=== PATIENT | female | born 1965 | race Caucasian/White ===

== ENCOUNTER → 2019-02-27 | Outpatient (CLI) | payer OTHER ==
[~2019-02-27] MED LIST: AMOX875; DULO60; Desyrel50 MG; FISH OIL 1,0001 EAC1; GABA300; Omeprazole20 M1; TIZANIDINE HCL4 MG; VOL-CARE RX TA1 EACH
== END | disposition home or self-care (01) ==
LOC: PLD 13:41 → LAB SHORT 13:41
DX: G57.62 Lesion of plantar nerve, left lower limb (principal); M79.672 Pain in left foot
CPT/HCPCS: 88304

== ENCOUNTER → 2024-01-31 | Outpatient (CLI) | payer OTHER ==
[~2024-01-31] MED LIST changes: +ABILIFY MYCITE2 M2 PO; +ALPRAZOLAM0.5 M1 PO; +AMPDEX10; +ARIPIPRAZOLE2 M1 PO; +BUSPIRONE HCL7.5 M6 PO; +CELEBREX200 MG PO; +DIGOX125 MC1 PO; +DULOXETINE HCL60 M1 PO; +ESTRADIOL-NORE1 EAC2 PO; +JARDIANCE10 MG PO; +LOSA25 PO; +NEBIVOLOL HCL5 MG PO; +NEURONTIN300 MG PO; +OMEP20ER PO; +PAXIL2010 PO; +SOAANZ20 M1 PO; +SPIR25 PO; +TOPROL XL25 MG PO; +TRIAMTERENE-HCTZ 37.
[2024-01-31 14:40] LABS: Adenovirus F 40/41 Not Detected (NOT DETECT); Astrovirus Not Detected (NOT DETECT); Campylobacter Sp Not Detected (NOT DETECT); Cryptosporidium Not Detected (NOT DETECT); Cyclospora Cayetanensis Not Detected (NOT DETECT); E. Coli O157 Not Detected (NOT DETECT); Entamoeba Histolytica Not Detected (NOT DETECT); Enteroaggregative E. coli-EAEC Not Detected (NOT DETECT); Enteropathogenic E. coli-EPEC Not Detected (NOT DETECT); Enterotoxigenic E. coli-ETEC Not Detected (NOT DETECT); Giardia Lamblia Not Detected (NOT DETECT); Plesiomonas Shigelloides Not Detected (NOT DETECT); Salmonella Sp Not Detected (NOT DETECT); Shiga Toxin-prod E. coli-STEC Not Detected (NOT DETECT); Shigella/Enteroin E. coli-EIEC Not Detected (NOT DETECT); Vibrio Cholerae Not Detected (NOT DETECT); Vibrio Sp Not Detected (NOT DETECT); Yersinia Enterocolitica Not Detected (NOT DETECT)
[2024-01-31 14:41] LABS: Norovirus GI/GII Not Detected (NOT DETECT); Rotavirus A Not Detected (NOT DETECT); Sapovirus Not Detected (NOT DETECT)
== END ==
LOC: LAB SHORT 08:37 → LAB 08:37 → LAB FUT 01-27 10:55
PROVIDERS: Internal Medicine
DX: R19.7 Diarrhea, unspecified (principal)
CPT/HCPCS: 87507

== ENCOUNTER 2024-03-07 16:22 | Observation (INO) | payer OTHER ==
[~2024-03-07] VITALS: Ht 162.6 cm; Wt 93.0 kg
[2024-03-08 12:04] VITALS: BP 113/74
== END 2024-03-08 13:38 | disposition home or self-care (01) ==
LOC: ER 16:22 → PCU 16:23
PROVIDERS: ADMIT Internal Medicine
DX: I47.19 Other supraventricular tachycardia (principal); I50.20 Unspecified systolic (congestive) heart failure; K21.9 Gastro-esophageal reflux disease without esophagitis; R00.1 Bradycardia, unspecified; I42.8 Other cardiomyopathies; I08.1 Rheumatic disorders of both mitral and tricuspid valves; Z79.899 Other long term (current) drug therapy

== ENCOUNTER 2024-03-12 09:05 | Emergency (ER) | payer OTHER ==
[~2024-03-12] VITALS: Ht 162.6 cm; Wt 93.0 kg
[~2024-03-12 09:05] MED LIST changes: +NEBI5 PO
[2024-03-12 09:47] LABS: BASOPHILS ABSOLUTE AUTO 0.07 K/mm3 (0.00-0.23); BASOPHILS PERCENT AUTO 1 % (0-2); EOSINOPHILS ABSOLUTE AUTO 0.17 K/mm3 (0.00-0.68); EOSINOPHILS PERCENT AUTO 3 % (0-6); Hematocrit 41.3 % (33.0-51.0); Hemoglobin 13.8 g/dL (11.5-16.0); IMMATURE GRAN ABSOLUTE AUTO 0.02 K/mm3 (0.00-0.10); IMMATURE GRAN PERCENT AUTO 0 % (0-1); LYMPHOCYTES ABSOLUTE AUTO 1.89 K/mm3 (0.84-5.20); LYMPHOCYTES PERCENT AUTO 31 % (21-46); MONOCYTES ABSOLUTE AUTO 0.53 K/mm3 (0.16-1.47); MONOCYTES PERCENT AUTO 9 % (4-13); Mean Corpuscular HGB 32.2 pg (26.0-34.0); Mean Corpuscular HGB Conc 33.4 g/dL (31.5-36.5); Mean Corpuscular Volume 97 fL (80-100); Mean Platelet Volume 9.2 fL (9.1-12.4); NEUTROPHILS PERCENT AUTO 56 % (41-73); Platelet Count 384 K/mm3 (150-400); RDW Coefficient Variation 13.3 % (11.7-14.2); RDW Standard Deviation 47.4 fL (35.1-46.3); Red Blood Cell Count 4.28 M/mm3 (3.80-5.20); White Blood Cell Count 6.08 K/mm3 (4.00-11.30)
[2024-03-12 10:07] LABS: Albumin, Blood 3.4 g/dL (3.4-5.0); Albumin/Globulin Ratio 0.9 (0.8-1.8); Bilirubin, Total 0.3 mg/dL (0.1-1.0); Calcium, Blood 8.9 mg/dL (8.5-10.1); Globulin, Blood 3.7 g/dL (2.2-4.0); Potassium, Blood 4.1 mmol/L (3.5-5.5); Total Protein, Blood 7.1 g/dL (6.4-8.2)
[2024-03-12 13:00] VITALS: BP 114/82
[2024-03-12] MEDS ORDERED: Lopressor 25 mg25 MG PO (13:14)
[2024-03-12] MEDS ORDERED: RX Prepack 2 Sprays Naloxone HCL 4 MG/SPRAY ONE (13:47)
== END 2024-03-12 13:34 | disposition home or self-care (01) ==
LOC: ER 09:05
PROVIDERS: Student in an Organized Health Care Education/Training Program
DX: R00.0 Tachycardia, unspecified (principal); R07.89 Other chest pain; R06.02 Shortness of breath; I42.8 Other cardiomyopathies; M79.7 Fibromyalgia; N18.30 Chronic kidney disease, stage 3 unspecified; F32.A Depression, unspecified; G62.9 Polyneuropathy, unspecified; K21.9 Gastro-esophageal reflux disease without esophagitis; Z79.899 Other long term (current) drug therapy; Z79.84 Long term (current) use of oral hypoglycemic drugs; Z86.79 Personal history of other diseases of the circulatory system
CPT/HCPCS: 71046; 80053; 84484; 85025; A9270

== ENCOUNTER → 2024-08-06 | Outpatient (CLI) | payer OTHER ==
[~2024-08-06] MED LIST changes: +Carvedilol12.5 MG PO; +DAPAGLIFLOZIN10 MG PO; +ELIQUIS5 M2 PO; +Lopressor 25 mg25 MG PO; +METO25 PO; +NEBI10 PO; -NEBI5 PO
[2024-08-10 20:50] LABS: ALBUMIN %,URINE 42.4 %; ALPHA-2 %,URINE 14.9 %; BETA GLOBULIN %,URINE 15.5 %; GAMMA GLOBULIN %,URINE 13.2 %; HOURS COLLECTED 24 hr; TOTAL VOLUME 2000 mL
== END ==
LOC: LAB SHORT 07:45 → LAB 07:45
PROVIDERS: Internal Medicine
DX: N18.31 Chronic kidney disease, stage 3a (principal); R79.89 Other specified abnormal findings of blood chemistry
CPT/HCPCS: 81050; 84156; 84166; 86335

== ENCOUNTER → 2024-10-18 | Outpatient (CLI) | payer OTHER | LOC: LAB 17:13 → LAB SHORT 17:13 | DX: N39.0 Urinary tract infection, site not specified (principal) | CPT/HCPCS: 87086 ==

== ENCOUNTER 2025-06-09 14:53 | Emergency (ER) | payer BC, OTHER ==
[~2025-06-09] VITALS: Ht 165.1 cm; Wt 95.2 kg
[2025-06-09 15:31] LABS: BASOPHILS ABSOLUTE AUTO 0.08 K/mm3 (0.00-0.23); BASOPHILS PERCENT AUTO 1 % (0-2); EOSINOPHILS ABSOLUTE AUTO 0.43 K/mm3 (0.00-0.68); EOSINOPHILS PERCENT AUTO 4 % (0-6); Hematocrit 38.2 % (33.0-51.0); Hemoglobin 11.8 g/dL (11.5-16.0); IMMATURE GRAN ABSOLUTE AUTO 0.04 K/mm3 (0.00-0.10); IMMATURE GRAN PERCENT AUTO 0 % (0-1); LYMPHOCYTES ABSOLUTE AUTO 0.99 K/mm3 (0.84-5.20); LYMPHOCYTES PERCENT AUTO 9 % (21-46); MONOCYTES ABSOLUTE AUTO 0.62 K/mm3 (0.16-1.47); MONOCYTES PERCENT AUTO 6 % (4-13); Mean Corpuscular HGB Conc 30.9 g/dL (31.5-36.5); Mean Corpuscular Volume 99 fL (80-100); NEUTROPHILS ABSOLUTE AUTO 8.68 K/mm3 (1.96-9.15); NEUTROPHILS PERCENT AUTO 80 % (41-73); NRBC ABSOLUTE 0.00 K/mm3 (0.00-0.02); NRBC Auto 0.0 /100 WBC (0.0-0.2); Platelet Count 447 K/mm3 (150-400); RDW Coefficient Variation 15.4 % (11.7-14.2); RDW Standard Deviation 56.4 fL (35.1-46.3)
[2025-06-09 15:52] LABS: Alanine Aminotransfer (ALT/SGP 22.0 U/L (12-78); Albumin, Blood 3.2 g/dL (3.4-5.0); Albumin/Globulin Ratio 0.7 (0.8-1.8); Anion Gap 9.0 mmol/L (3-11); Aspartate Aminotrans (AST/SGOT 18.0 U/L (12-37); Bilirubin, Total 0.4 mg/dL (0.1-1.0); Blood Urea Nitrogen 17.0 mg/dL (8-24); CO2, Blood 26.0 mmol/L (21-32); Calcium, Blood 8.8 mg/dL (8.5-10.1); Chloride, Blood 105.0 mmol/L (98-108); Creatinine, Blood 1.54 mg/dL (0.40-1.00); Globulin, Blood 4.4 g/dL (2.2-4.0); Glucose, Blood 111.0 mg/dL (70-99); Potassium, Blood 4.3 mmol/L (3.5-5.5); Sodium, Blood 136.0 mmol/L (136-145); Total Protein, Blood 7.6 g/dL (6.4-8.2)
[2025-06-09] MEDS ORDERED: Morphine Sulfate 4 MG/1 ML Injection IV ONE (16:10)
[2025-06-09 16:22] LABS: Source, Urine Clean Catch
[2025-06-09 16:24] LABS: Bilirubin, Urine Neg (Neg); Color, Urine Yellow (P-Yellow); Glucose Qualitative, Urine Neg (Neg); Ketones, Urine Neg (Neg); Leukocyte Esterase, Urine Neg (Neg); Protein, Urine 2+ (Neg); Specific Gravity, Urine 1.020 (1.003-1.022); Urobilinogen, Urine NORM (Normal)
[2025-06-09 16:56] LABS: Red Blood Cells, Urine 0-2 /hpf (0-2)
[2025-06-09] MEDS ORDERED: Ketorolac Tromethamine 15mg Vial IV ONE (18:30)
[2025-06-09] MEDS ORDERED: Ondansetron HCl 2 MG / ML 2ML Vial IV ONE (18:35)
[2025-06-09 21:10] VITALS: BP 147/76
[2025-06-09] MEDS ORDERED: ONDA4ODT MM (21:23)
[2025-06-09] MEDS ORDERED: HYDR1TAB94 PO (21:23)
== END 2025-06-09 21:19 | disposition home or self-care (01) ==
LOC: ER 14:53
PROVIDERS: Emergency Medicine; Student in an Organized Health Care Education/Training Program
DX: D49.512 Neoplasm of unspecified behavior of left kidney (principal); K76.9 Liver disease, unspecified; K21.9 Gastro-esophageal reflux disease without esophagitis; Z79.899 Other long term (current) drug therapy
CPT/HCPCS: 74177; 76705; 80053; 81001; 83690; 85025; 96374-59; 96375; 99284-25; J1885; J2270; J2405; Q9967

== ENCOUNTER → 2025-06-27 | Outpatient (CLI) | payer BC, OTHER ==
[~2025-06-27] MED LIST changes: +GABA300 PO; +HYDR1TAB94 PO; +ONDA4ODT MM
[2025-06-27 10:55] LABS: Hematocrit 39.7 % (33.0-51.0); Hemoglobin 12.6 g/dL (11.5-16.0); Mean Corpuscular HGB Conc 31.7 g/dL (31.5-36.5); Mean Corpuscular Volume 96 fL (80-100); NRBC ABSOLUTE 0.00 K/mm3 (0.00-0.02); NRBC Auto 0.0 /100 WBC (0.0-0.2); Platelet Count 638 K/mm3 (150-400); RDW Coefficient Variation 14.7 % (11.7-14.2); RDW Standard Deviation 51.8 fL (35.1-46.3)
[2025-06-27 11:06] LABS: Prothrombin Time Results 11.9 Sec (9.7-11.5)
== END | disposition home or self-care (01) ==
LOC: LAB 09:38 → LAB SHORT 09:38
PROVIDERS: Internal Medicine
DX: C80.0 Disseminated malignant neoplasm, unspecified (principal)
CPT/HCPCS: 36415; 85027; 85610; 85730

== ENCOUNTER 2025-07-10 09:14 | Emergency (ER) | payer OTHER ==
[~2025-07-10] VITALS: Ht 162.6 cm; Wt 88.5 kg
[2025-07-10 10:53] LABS: BASOPHILS ABSOLUTE AUTO 0.13 K/mm3 (0.00-0.23); BASOPHILS PERCENT AUTO 1 % (0-2); EOSINOPHILS ABSOLUTE AUTO 1.25 K/mm3 (0.00-0.68); EOSINOPHILS PERCENT AUTO 6 % (0-6); Hematocrit 34.2 % (33.0-51.0); Hemoglobin 10.9 g/dL (11.5-16.0); IMMATURE GRAN ABSOLUTE AUTO 0.19 K/mm3 (0.00-0.10); IMMATURE GRAN PERCENT AUTO 1 % (0-1); LYMPHOCYTES ABSOLUTE AUTO 1.18 K/mm3 (0.84-5.20); LYMPHOCYTES PERCENT AUTO 5 % (21-46); MONOCYTES ABSOLUTE AUTO 2.06 K/mm3 (0.16-1.47); MONOCYTES PERCENT AUTO 9 % (4-13); Mean Corpuscular HGB Conc 31.9 g/dL (31.5-36.5); Mean Corpuscular Volume 93 fL (80-100); NEUTROPHILS ABSOLUTE AUTO 16.99 K/mm3 (1.96-9.15); NEUTROPHILS PERCENT AUTO 78 % (41-73); NRBC ABSOLUTE 0.00 K/mm3 (0.00-0.02); NRBC Auto 0.0 /100 WBC (0.0-0.2); Platelet Count 566 K/mm3 (150-400); RDW Coefficient Variation 14.6 % (11.7-14.2); RDW Standard Deviation 51.1 fL (35.1-46.3)
[2025-07-10 11:17] LABS: Anion Gap 14.0 mmol/L (3-11); Blood Urea Nitrogen 25.0 mg/dL (8-24); CO2, Blood 21.0 mmol/L (21-32); Calcium, Blood 8.7 mg/dL (8.5-10.1); Chloride, Blood 97.0 mmol/L (98-108); Creatinine, Blood 1.4 mg/dL (0.40-1.00); Glucose, Blood 136.0 mg/dL (70-99); Potassium, Blood 4.6 mmol/L (3.5-5.5); Sodium, Blood 127.0 mmol/L (136-145)
[2025-07-10 11:32] LABS: Source, Urine Clean Catch
[2025-07-10 12:00] LABS: Bilirubin, Urine Neg (Neg); Color, Urine Yellow (P-Yellow); Glucose Qualitative, Urine Neg (Neg); Ketones, Urine Neg (Neg); Leukocyte Esterase, Urine Neg (Neg); Protein, Urine 3+ (Neg); Specific Gravity, Urine 1.015 (1.003-1.022); Urobilinogen, Urine NORM (Normal)
[2025-07-10 12:10] LABS: Influenza A, PCR NEGATIVE (NEGATIVE); Influenza B, PCR NEGATIVE (NEGATIVE); Red Blood Cells, Urine 0-2 /hpf (0-2); Resp Syncytial Virus, PCR NEGATIVE (NEGATIVE); SARS-Cov-2 (COVID-19) PCR, MMC NEGATIVE (NEGATIVE); White Blood Cells, Urine 0-2 /hpf (0-5)
[2025-07-10] MEDS ORDERED: NS 1,000 ML IV SCH (13:00)
[2025-07-10 15:15] VITALS: BP 122/81
[2025-07-12] MEDS ORDERED: AMIODARONE HCL100 M3 PO (08:31)
[2025-07-12] MEDS ORDERED: RAYOS PO (08:33)
[2025-07-12] MEDS ORDERED: GABA300 PO (08:36)
== END 2025-07-10 16:14 | disposition home or self-care (01) ==
LOC: ER 09:14
PROVIDERS: Student in an Organized Health Care Education/Training Program
DX: R00.2 Palpitations (principal); I95.9 Hypotension, unspecified; I48.91 Unspecified atrial fibrillation; Z88.8 Allergy status to other drugs, medicaments and biological substances; Z79.01 Long term (current) use of anticoagulants; Z79.899 Other long term (current) drug therapy; I42.8 Other cardiomyopathies; N18.30 Chronic kidney disease, stage 3 unspecified; D72.829 Elevated white blood cell count, unspecified; D75.839 Thrombocytosis, unspecified; E87.1 Hypo-osmolality and hyponatremia
CPT/HCPCS: 80048; 81001; 84484; 85025; 87086; 87637; 93005; 93010; 96360; 99285-25; J7030

== ENCOUNTER 2025-07-16 07:16 | Inpatient (IN) | payer OTHER ==
[~2025-07-16] VITALS: Ht 162.6 cm; Wt 91.7 kg
[2025-07-16] VITALS (13 sets, daily range): BP systolic 104–191; BP diastolic 66–113
[~2025-07-16 07:16] MED LIST changes: +AMIODARONE HCL100 M3 PO; +RAYOS PO
[2025-07-16] MEDS ORDERED: OXYC5 PO (08:04)
--- NOTE | 2025-07-16 08:17 | NUR ---
0740- PATIENT ARRIVED TO DAY SURGERY VIA W/C ACCOMPANIED BY SISTER AND DAD. SHE STOOD WITHOUT DIFFICULTY FOR WEIGHT/HEIGHT AND GETTING DRESSED. NOTED PATIENT DIAPHORETIC. SHE STATED SHE HAS BEEN THIS WAY FOR ABOUT 24 HOURS. DENIES CHEST PAIN. ONLY C/O IS SHE SAYS SHE DOES NOT FEEL WELL AND THINKS SHE IS DEHYDRATED. 0755-APPLIED 3-LEAD EKG AND NOTED HR AT 144BPM. 0757-REACHED DR AMEZQUITA ON VOCERA AND UPDATED WITH VS AND PATIENT PRESENTATION. ORDERS FOR IV FLUID BOLUS LR AND EKG GIVEN. 0803- EKG DONE, IVF BOLUS INITIATED. PATIENT TOLD TO BEAR DOWN AND BOW THROUGH A STRAW TO SEE IF HR WOULD DROP. DR AMEZQUITA CALLED, BUT UNREACHED. 0805-REACHED DR AMEZQUITA OVER VOCERA, SHE WOULD LIKE UPDATED AFTER FIRST BAG OF LR GIVEN. 0823- FIRST BAG IV FLUID IN, DR LEMONS CALLED AND ORDER FOR LABS AND SECOND BAG OF LR BOLUS GIVEN. LAB CALLED FOR STAT LABS. 0831- SECOND BAG IV FLUID STARTED.
--- NOTE | 2025-07-16 09:04 | NUR ---
"I FEEL BETTER." PATIENT NO LONGER DIAPHORETIC. BP 123/84. HR 138BPM, SINUS TACHYCARDIA ON 3-LEAD EKG. WILL UPDATE DR AMEZQUITA WHO IS EXPECTED ANYTIME IN DAY SURGERY.
[2025-07-16 09:10] LABS: Hematocrit 32.4 % (33.0-51.0); Hemoglobin 10.1 g/dL (11.5-16.0); Mean Corpuscular HGB Conc 31.2 g/dL (31.5-36.5); Mean Corpuscular Volume 93 fL (80-100); NRBC ABSOLUTE 0.00 K/mm3 (0.00-0.02); NRBC Auto 0.0 /100 WBC (0.0-0.2); Platelet Count 469 K/mm3 (150-400); RDW Coefficient Variation 14.9 % (11.7-14.2); RDW Standard Deviation 51.1 fL (35.1-46.3)
[2025-07-16 09:36] LABS: Alanine Aminotransfer (ALT/SGP 65.0 U/L (12-78); Albumin, Blood 1.8 g/dL (3.4-5.0); Albumin/Globulin Ratio 0.4 (0.8-1.8); Anion Gap 9.0 mmol/L (3-11); Aspartate Aminotrans (AST/SGOT 49.0 U/L (12-37); Bilirubin, Total 0.9 mg/dL (0.1-1.0); Blood Urea Nitrogen 19.0 mg/dL (8-24); CO2, Blood 27.0 mmol/L (21-32); Calcium, Blood 8.4 mg/dL (8.5-10.1); Chloride, Blood 99.0 mmol/L (98-108); Creatinine, Blood 1.06 mg/dL (0.40-1.00); Globulin, Blood 4.4 g/dL (2.2-4.0); Glucose, Blood 117.0 mg/dL (70-99); Potassium, Blood 4.1 mmol/L (3.5-5.5); Sodium, Blood 131.0 mmol/L (136-145); Total Protein, Blood 6.2 g/dL (6.4-8.2)
--- NOTE | 2025-07-16 10:14 | NUR ---
WILL TRANSFER TO ICU WHEN ROOM AND RN AVAILABLE. "I'M SLEEP, BUT I FEEL GOOD." NONDIAPHORATIC. HR SINUS TACHY ON 3 LEAD EKG 138BPM. BP 130/83.
--- NOTE | 2025-07-16 10:28 | NUR ---
CALLED TO GIVE REPORT TO ICU 15 RN, CAROL VILLAR. WILL TRANSFER PATIENT WHEN HOSPITALIST WRITES ORDERS FOR ADMIT.
--- NOTE | 2025-07-16 10:57 | NUR ---
CONFIRMED WITH DR GAINES OVER THE PHONE THAT SHE WAS GOING TO PUT ADMIT ORDERS IN FOR PATIENT TO BE ADMITTED TO ICU 15, PCU STATUS. WILL TRANSFER WHEN ORDERS ARE AVAILABLE.
[2025-07-16] MEDS ORDERED: FLU VACC TS2025-26(6MOS UP)/PF 45 MCG/0.5 ML SYRINGE IM SCH (11:10)
--- NOTE | 2025-07-16 11:34 | NUR ---
UP TO BR. VOIDED, NOT MEASURED.
--- NOTE | 2025-07-16 11:54 | NUR ---
REPORT GIVEN TO RHONA REGALADO RN, IN DAY SURGERY. PLAN TO TRANSFER TO PCU 11 NOW, WHEN BED AVAILABLE.
[2025-07-16] MEDS ORDERED: Ondansetron HCl 2 MG / ML 2ML Vial IV PRN (13:35)
--- NOTE | 2025-07-16 19:20 | NUR ---
ASSUMPTION OF CARE ASSUMED PT'S CARE AT 1900.PT WIDE AWAKE SITTING UP IN BED.BEDSIDE REPORT COMPLETED.PT REPORTS PAIN,THIS NURSE TO ADMINISTER PRN PAIN MED.DENIES SOB,DENIES NUMBNESS/TINGLING,DENIES NAUSEA,DENIES FURTHER NEEDS.CALL LIGHT AND PT'S ITEMS WITHIN REACH.MONITORING ONGOING PER CAREPLAN.
[2025-07-17] VITALS (29 sets, daily range): BP systolic 89–123; BP diastolic 59–83
[2025-07-17 00:41] LABS: Source, Urine Clean Catch
[2025-07-17 00:45] LABS: Bilirubin, Urine Neg (Neg); Glucose Qualitative, Urine Neg (Neg); Ketones, Urine Neg (Neg); Leukocyte Esterase, Urine 1+ (Neg); Protein, Urine 2+ (Neg); Specific Gravity, Urine 1.020 (1.003-1.022); Urobilinogen, Urine 2+ (Normal)
[2025-07-17 00:51] LABS: Color, Urine Yellow (P-Yellow); Red Blood Cells, Urine Not Seen /hpf (0-2)
[2025-07-17 00:52] LABS: WBC Cast 0-2 /lpf (0)
--- NOTE | 2025-07-17 06:32 | NUR ---
PT MONITORED DURING THE SHIFT,PT C/O BILATERAL FLANK PAIN WITH DEEP BREATHING.PRN PAIN MED GIVEN X1 PER PER PT'S REQUESTED.PT AMBULATED TO THE BATHROOM WITH ONE ASSIST TO URINATE.PT HAD A TOTAL OF 400ML THIS SHIFT.UA SENT TO LAB,RESULTS REPORTED TO .NO ORDERS GIVEN.PT BLADDER SCANNED TO RULE OUT RETENTION,20ML IN BLADDER POST VOID.PT SLEEPING AT THIS TIME,EASILY AROUSABLE.PT DENIES PAIN,DENIES SOB,DENIES NEEDS.CALL LIGHT AND PT'S ITEMS WITHIN REACH.NPO SINCE MIDNIGHT FOR MEDIPORT INSERTION TODAY.MONITORING ONGOING PER CAREPLAN.
[2025-07-17 07:52] LABS: BASOPHILS ABSOLUTE AUTO 0.08 K/mm3 (0.00-0.23); BASOPHILS PERCENT AUTO 0 % (0-2); EOSINOPHILS ABSOLUTE AUTO 1.25 K/mm3 (0.00-0.68); EOSINOPHILS PERCENT AUTO 5 % (0-6); Hematocrit 33.1 % (33.0-51.0); Hemoglobin 10.3 g/dL (11.5-16.0); IMMATURE GRAN ABSOLUTE AUTO 0.26 K/mm3 (0.00-0.10); IMMATURE GRAN PERCENT AUTO 1 % (0-1); LYMPHOCYTES ABSOLUTE AUTO 1.32 K/mm3 (0.84-5.20); LYMPHOCYTES PERCENT AUTO 6 % (21-46); MONOCYTES ABSOLUTE AUTO 2.09 K/mm3 (0.16-1.47); MONOCYTES PERCENT AUTO 9 % (4-13); Mean Corpuscular HGB Conc 31.1 g/dL (31.5-36.5); Mean Corpuscular Volume 93 fL (80-100); NEUTROPHILS ABSOLUTE AUTO 18.79 K/mm3 (1.96-9.15); NEUTROPHILS PERCENT AUTO 79 % (41-73); NRBC ABSOLUTE 0.00 K/mm3 (0.00-0.02); NRBC Auto 0.0 /100 WBC (0.0-0.2); Platelet Count 494 K/mm3 (150-400); RDW Coefficient Variation 14.7 % (11.7-14.2); RDW Standard Deviation 50.8 fL (35.1-46.3)
[2025-07-17 08:06] LABS: Alanine Aminotransfer (ALT/SGP 82.0 U/L (12-78); Albumin, Blood 1.9 g/dL (3.4-5.0); Albumin/Globulin Ratio 0.4 (0.8-1.8); Anion Gap 9.0 mmol/L (3-11); Aspartate Aminotrans (AST/SGOT 69.0 U/L (12-37); Bilirubin, Total 0.8 mg/dL (0.1-1.0); Blood Urea Nitrogen 19.0 mg/dL (8-24); CO2, Blood 28.0 mmol/L (21-32); Calcium, Blood 8.7 mg/dL (8.5-10.1); Chloride, Blood 96.0 mmol/L (98-108); Creatinine, Blood 1.28 mg/dL (0.40-1.00); Globulin, Blood 4.7 g/dL (2.2-4.0); Glucose, Blood 117.0 mg/dL (70-99); Potassium, Blood 4.2 mmol/L (3.5-5.5); Sodium, Blood 129.0 mmol/L (136-145); Total Protein, Blood 6.6 g/dL (6.4-8.2)
--- NOTE | 2025-07-17 08:15 | NUR ---
Care [place] / Gone for mediport placement Pt A&O x4. VSS. Spo2 > 92% on RA. Monitor showing NSR, HR 90s. Pt reporting sharp, left to mid abd pain that pt reports ongoing since cancer diagnosis. Pt NPO since midnight for mediport placement. Pt now gone for mediport placement. Told pt will reassess pain again upon pt return to unit.
--- NOTE | 2025-07-17 08:34 | NUR ---
INTO [facility] VIA [employer]. HISTORY AND ALLERGIES REVIEWED. LUNGS CLEAR. HR 90'S-PT HAD HER COREG WITH A SIP OF H20 THIS AM. NPO STATUS CONFIRMED.
[2025-07-17] MEDS ORDERED: CeFAZolin Sodium 2,000 MG in NS 100 ML IV SCH (08:40)
[2025-07-17] MEDS ORDERED: FentaNYL Citrate 50 MCG/ML 2 ML Injection ONE (08:41)
[2025-07-17] MEDS ORDERED: Dexamethasone Sod Phos 10 MG/ML 1ML VIAL ONE (08:57)
[2025-07-17] MEDS ORDERED: Ondansetron HCl 2 MG / ML 2ML Vial ONE (09:13)
[2025-07-17] MEDS ORDERED: Phenylephrine HCl 100 MCG/ML-NS 10MLSYR (1MG/10ML) ONE (09:21)
[2025-07-17] MEDS ORDERED: Diltiazem HCl 5 MG / ML 5ML Vial IV ONE (10:15)
--- NOTE | 2025-07-17 10:23 | NUR ---
IMAGING COMPLETE IN PACU
--- NOTE | 2025-07-17 12:45 | NUR ---
Update Pt back to rm from procedure, mediport to RCW. Site open to air. Pt A&O x4, reports feeling "tired". Monitor showing accelerated regular rhythm, HR 135-137. BP soft. w/ instruction to proceed w/ giving 10mg IV cardizem push & give 500ml LR bolus. IV cardizem given per EMAR w/ pt conversion back to SR, HR 70s. Pt BP holding. VSS. Spo2 > 92% on 2L NC.
--- NOTE | 2025-07-17 18:31 | NUR ---
End of Shift Pt coninues to be A&O x4. VSS. Spo2 > 92% on RA upon care assumption, then wearing 2L NC upon return from mediport placement this morning. Monitor showing SR, HR 70s-90s prior to mediport placement. Pt then in ST or aflutter, HR 135-137 upon return.10mg IV cardizem push given per MD order w/ pt convert back to NSR (see previous note). Pt w/ surgical sites for mediport placement to RIJ & RCW. Pt denying pain/discomfort to area. Pt w/ ongoing sharp, left to mid abd pain that pt reports ongoing since cancer diagnosis. Pt medicated for pain per emar w/ pt then able to sleep & report improvement.
[2025-07-18 04:19] VITALS: BP 117/76
[2025-07-18 04:39] LABS: Hematocrit 31.4 % (33.0-51.0); Hemoglobin 9.8 g/dL (11.5-16.0); Mean Corpuscular HGB Conc 31.2 g/dL (31.5-36.5); Mean Corpuscular Volume 93 fL (80-100); NRBC ABSOLUTE 0.00 K/mm3 (0.00-0.02); NRBC Auto 0.0 /100 WBC (0.0-0.2); Platelet Count 483 K/mm3 (150-400); RDW Coefficient Variation 14.9 % (11.7-14.2); RDW Standard Deviation 51.4 fL (35.1-46.3)
[2025-07-18 05:09] LABS: Alanine Aminotransfer (ALT/SGP 62.0 U/L (12-78); Albumin, Blood 1.8 g/dL (3.4-5.0); Albumin/Globulin Ratio 0.4 (0.8-1.8); Anion Gap 8.0 mmol/L (3-11); Aspartate Aminotrans (AST/SGOT 51.0 U/L (12-37); Bilirubin, Total 0.4 mg/dL (0.1-1.0); Blood Urea Nitrogen 22.0 mg/dL (8-24); CO2, Blood 27.0 mmol/L (21-32); Calcium, Blood 8.6 mg/dL (8.5-10.1); Chloride, Blood 101.0 mmol/L (98-108); Creatinine, Blood 0.98 mg/dL (0.40-1.00); Globulin, Blood 4.6 g/dL (2.2-4.0); Glucose, Blood 159.0 mg/dL (70-99); Potassium, Blood 4.3 mmol/L (3.5-5.5); Sodium, Blood 132.0 mmol/L (136-145); Total Protein, Blood 6.4 g/dL (6.4-8.2)
[2025-07-18 05:26] LABS: BASOPHILS ABSOLUTE MAN 0.00 K/mm3 (0.00-0.23); BASOPHILS PERCENT MAN 0 % (0-2); EOSINOPHILS ABSOLUTE MAN 0.00 K/mm3 (0.00-0.68); EOSINOPHILS PERCENT MAN 0 % (0-6); LYMPHOCYTES ABSOLUTE MAN 1.80 K/mm3 (0.84-5.20); LYMPHOCYTES PERCENT MAN 9 % (21-46); MONOCYTES ABSOLUTE MAN 1.00 K/mm3 (0.16-1.47); MONOCYTES PERCENT MAN 5 % (4-13); NEUTROPHILS ABSOLUTE MAN 17.27 K/mm3 (1.96-9.15); SEG NEUTROPHILS PERCENT MAN 86 % (41-73)
--- NOTE | 2025-07-18 05:39 | NUR ---
SHIFT SUMMARY PT IS A&O X 4, ABLE TO MAKE NEEDS KNOWN, MOVING ALL EXTREMITIES WITH PURPOSE/ WEAKNESS, OBEYS COMMANDS, REPOSITIONING SELF IN BED, SBA, CALLS APPROPRIATELY. CONTINUOUS SPO2, SPO2 GREATER THAN 92% ON 1L O2 VIA NC/ PT REQUESTING TO KEEP NC ON FOR COMFORT, LUNGS SOUND CLEAR WITH DIMINISHED BASES, PT DENIES SOB. CONTINUOUS TELE MONITORING, SINUS 60-70 S, BP STABLE WITH MAP GREATER THAN 65, CAP REFILL WNL, PULSES PRESENT T/O, DENIES CHEST P/P T/O THIS SHIFT. BOWEL TONES PRESENT IN ALL 4Q, PT DENIES FEELINGS OF NAUSEA OR CONSTIPATION OR PAIN. PT CONTINENT OF URINE, URINE PALE YELLOW IN COLOR S/P MEDIPORT PLACEMENT 07/17/25, RIGHT CHEST AND JUGLAR INSITIONS ARE OPEN TO AIR AND CLOSED WITH MEDICAL GLUE, SMALL AMOUNT OF BRUSING AND TENDER TO TOUCH, NO SIGNS OF HEMATOMA OR INFECTION. BED LOWEST POSITION, CALL LIGHT IN REACH, AWAITING TO GIVE REPORT TO ONCOMING RN.
[2025-07-18 09:02] VITALS: BP 103/65
[2025-07-18] MEDS ORDERED: CefTRIAXone Sodium 1,000 MG in NS 100 ML IV STA (12:08)
[2025-07-18] MEDS ORDERED: Cefpodoxime Pr100 MG PO (12:45)
--- NOTE | 2025-07-18 15:23 | NUR ---
DISCHARGE SUMMARY POD1 MEDIPORT INSERTION WITH HYPOTENSION POST OP, A/OX4, VSS, TOLERATING PO, PAIN TOLERABLE, INCISION RCW C/D/I, ACCESS SITE R NECK ALSO C/D/I, PT REPORTS SOME DISCOMFORT BUT DESCRIBES IT "A LITTLE SORE". TELEMETRY IN PLACE UP UNTIL DC WITH NO EVENTS (SEE RHYTHM STRIPS). DISCHARGE INSTRUCTIONS PROVIDED BY BREAK RN, ESCORTED OUT TO [employer] TO GO HOME.
== END 2025-07-18 15:27 | disposition home or self-care (01) | DRG 674 ==
LOC: ORSCMMR 07:16 → ORD 09:00 → PCU 09:02 → ORSCMMR 09:02 → PCU 09:02
PROVIDERS: Student in an Organized Health Care Education/Training Program; Surgery; ADMIT Internal Medicine
PROC: 02HV33Z Insertion of Infusion Device into Superior Vena Cava, Percutaneous Approach (ICD-10-PCS; 2025-07-17)
PROC: B5181ZA Fluoroscopy of Superior Vena Cava using Low Osmolar Contrast, Guidance (ICD-10-PCS; 2025-07-17)
PROC: 3E03329 Introduction of Other Anti-infective into Peripheral Vein, Percutaneous Approach (ICD-10-PCS; 2025-07-17)
PROC: 0JH60WZ Insertion of Totally Implantable Vascular Access Device into Chest Subcutaneous Tissue and Fascia, Open Approach (ICD-10-PCS; principal; 2025-07-17 08:30)
DX: C65.2 Malignant neoplasm of left renal pelvis (principal); I48.92 Unspecified atrial flutter; R00.0 Tachycardia, unspecified; M79.7 Fibromyalgia; N18.30 Chronic kidney disease, stage 3 unspecified; K21.9 Gastro-esophageal reflux disease without esophagitis; F32.A Depression, unspecified; G62.9 Polyneuropathy, unspecified; I48.91 Unspecified atrial fibrillation; I95.9 Hypotension, unspecified; Z88.8 Allergy status to other drugs, medicaments and biological substances; Z79.01 Long term (current) use of anticoagulants; Z79.891 Long term (current) use of opiate analgesic; Z79.899 Other long term (current) drug therapy; Z79.52 Long term (current) use of systemic steroids
CPT/HCPCS: 36415; 77001; 80053; 81001; 82947; 85007; 85025; 85027; 87086; 93005; 93010; 94762; A9270; C1788; C1894; J0690; J0696; J1100; J1642; J2371; J2405; J2704; J3010; J7120

== ENCOUNTER 2025-07-19 08:25 | Inpatient (IN) | payer OTHER ==
[~2025-07-19] VITALS: Ht 162.6 cm; Wt 95.1 kg
[~2025-07-19 08:25] MED LIST changes: +Cefpodoxime Pr100 MG PO; +OXYC5 PO
[2025-07-19] MEDS ORDERED: Magnesium Sulf 2 GM/Water 50ML 50 ML IV ONE (08:35)
[2025-07-19] MEDS ORDERED: NS 1,000 ML IV SCH ×3 (08:40→12:20)
[2025-07-19] MEDS ORDERED: Diltiazem HCl 5 MG / ML 5ML Vial IV ONE ×2 (08:40→09:00)
[2025-07-19 08:52] LABS: BASOPHILS ABSOLUTE AUTO 0.08 K/mm3 (0.00-0.23); BASOPHILS PERCENT AUTO 0 % (0-2); EOSINOPHILS ABSOLUTE AUTO 0.43 K/mm3 (0.00-0.68); EOSINOPHILS PERCENT AUTO 1 % (0-6); Hematocrit 38.3 % (33.0-51.0); Hemoglobin 12.6 g/dL (11.5-16.0); IMMATURE GRAN ABSOLUTE AUTO 0.49 K/mm3 (0.00-0.10); IMMATURE GRAN PERCENT AUTO 1 % (0-1); LYMPHOCYTES ABSOLUTE AUTO 2.06 K/mm3 (0.84-5.20); LYMPHOCYTES PERCENT AUTO 6 % (21-46); MONOCYTES ABSOLUTE AUTO 2.48 K/mm3 (0.16-1.47); MONOCYTES PERCENT AUTO 7 % (4-13); Mean Corpuscular HGB Conc 32.9 g/dL (31.5-36.5); Mean Corpuscular Volume 90 fL (80-100); NEUTROPHILS ABSOLUTE AUTO 29.60 K/mm3 (1.96-9.15); NEUTROPHILS PERCENT AUTO 84 % (41-73); NRBC ABSOLUTE 0.00 K/mm3 (0.00-0.02); NRBC Auto 0.0 /100 WBC (0.0-0.2); Platelet Count 695 K/mm3 (150-400); RDW Coefficient Variation 14.9 % (11.7-14.2); RDW Standard Deviation 49.1 fL (35.1-46.3)
[2025-07-19 09:14] LABS: Alanine Aminotransfer (ALT/SGP 70.0 U/L (12-78); Albumin, Blood 2.0 g/dL (3.4-5.0); Albumin/Globulin Ratio 0.4 (0.8-1.8); Anion Gap 12.0 mmol/L (3-11); Aspartate Aminotrans (AST/SGOT 63.0 U/L (12-37); Bilirubin, Total 0.7 mg/dL (0.1-1.0); Blood Urea Nitrogen 25.0 mg/dL (8-24); CO2, Blood 22.0 mmol/L (21-32); Calcium, Blood 8.6 mg/dL (8.5-10.1); Chloride, Blood 101.0 mmol/L (98-108); Creatinine, Blood 1.09 mg/dL (0.40-1.00); Globulin, Blood 5.0 g/dL (2.2-4.0); Glucose, Blood 135.0 mg/dL (70-99); Potassium, Blood 4.9 mmol/L (3.5-5.5); Sodium, Blood 130.0 mmol/L (136-145); Total Protein, Blood 7.0 g/dL (6.4-8.2)
[2025-07-19] MEDS ORDERED: CefTRIAXone Sodium 1,000 MG in NS 100 ML IV ONE (10:10)
[2025-07-19] MEDS ORDERED: FLU VACC TS2025-26(6MOS UP)/PF 45 MCG/0.5 ML SYRINGE IM SCH (10:40)
[2025-07-19] MEDS ORDERED: FLU VACC TS2025-26(6MOS UP)/PF 45 MCG/0.5 ML SYRINGE IM ONE (10:40)
[2025-07-19] MEDS ORDERED: MetroNIDAZOLE 500MG/NS 100 ml 100 ML IV SCH (11:00)
[2025-07-19 11:12] LABS: BASOPHILS ABSOLUTE AUTO 0.04 K/mm3 (0.00-0.23); BASOPHILS PERCENT AUTO 0 % (0-2); EOSINOPHILS ABSOLUTE AUTO 0.28 K/mm3 (0.00-0.68); EOSINOPHILS PERCENT AUTO 1 % (0-6); Hematocrit 33.7 % (33.0-51.0); Hemoglobin 10.8 g/dL (11.5-16.0); IMMATURE GRAN ABSOLUTE AUTO 0.31 K/mm3 (0.00-0.10); IMMATURE GRAN PERCENT AUTO 1 % (0-1); LYMPHOCYTES ABSOLUTE AUTO 1.01 K/mm3 (0.84-5.20); LYMPHOCYTES PERCENT AUTO 4 % (21-46); MONOCYTES ABSOLUTE AUTO 2.30 K/mm3 (0.16-1.47); MONOCYTES PERCENT AUTO 9 % (4-13); Mean Corpuscular HGB Conc 32.0 g/dL (31.5-36.5); Mean Corpuscular Volume 93 fL (80-100); NEUTROPHILS ABSOLUTE AUTO 22.24 K/mm3 (1.96-9.15); NEUTROPHILS PERCENT AUTO 85 % (41-73); NRBC ABSOLUTE 0.02 K/mm3 (0.00-0.02); NRBC Auto 0.1 /100 WBC (0.0-0.2); Platelet Count 496 K/mm3 (150-400); RDW Coefficient Variation 15.0 % (11.7-14.2); RDW Standard Deviation 50.6 fL (35.1-46.3)
[2025-07-19 11:50] LABS: Alanine Aminotransfer (ALT/SGP 58.0 U/L (12-78); Albumin, Blood 1.8 g/dL (3.4-5.0); Albumin/Globulin Ratio 0.4 (0.8-1.8); Anion Gap 9.0 mmol/L (3-11); Aspartate Aminotrans (AST/SGOT 45.0 U/L (12-37); Bilirubin, Total 0.6 mg/dL (0.1-1.0); Blood Urea Nitrogen 24.0 mg/dL (8-24); CO2, Blood 26.0 mmol/L (21-32); Calcium, Blood 8.0 mg/dL (8.5-10.1); Chloride, Blood 101.0 mmol/L (98-108); Creatinine, Blood 1.2 mg/dL (0.40-1.00); Globulin, Blood 4.1 g/dL (2.2-4.0); Glucose, Blood 115.0 mg/dL (70-99); Potassium, Blood 4.2 mmol/L (3.5-5.5); Sodium, Blood 132.0 mmol/L (136-145); Total Protein, Blood 5.9 g/dL (6.4-8.2)
[2025-07-19 12:49] VITALS: BP 104/65
[2025-07-19 15:53] VITALS: BP 109/71
[2025-07-19 17:35] VITALS: BP 108/67
[2025-07-19 19:35] VITALS: BP 105/68
[2025-07-19 23:16] VITALS: BP 106/70
[2025-07-20 03:17] VITALS: BP 95/55
[2025-07-20 03:54] LABS: BASOPHILS ABSOLUTE AUTO 0.03 K/mm3 (0.00-0.23); BASOPHILS PERCENT AUTO 0 % (0-2); EOSINOPHILS ABSOLUTE AUTO 0.82 K/mm3 (0.00-0.68); EOSINOPHILS PERCENT AUTO 3 % (0-6); Hematocrit 31.3 % (33.0-51.0); Hemoglobin 9.8 g/dL (11.5-16.0); IMMATURE GRAN ABSOLUTE AUTO 0.25 K/mm3 (0.00-0.10); IMMATURE GRAN PERCENT AUTO 1 % (0-1); LYMPHOCYTES ABSOLUTE AUTO 1.83 K/mm3 (0.84-5.20); LYMPHOCYTES PERCENT AUTO 7 % (21-46); MONOCYTES ABSOLUTE AUTO 1.92 K/mm3 (0.16-1.47); MONOCYTES PERCENT AUTO 8 % (4-13); Mean Corpuscular HGB Conc 31.3 g/dL (31.5-36.5); Mean Corpuscular Volume 93 fL (80-100); NEUTROPHILS ABSOLUTE AUTO 19.79 K/mm3 (1.96-9.15); NEUTROPHILS PERCENT AUTO 80 % (41-73); NRBC ABSOLUTE 0.00 K/mm3 (0.00-0.02); NRBC Auto 0.0 /100 WBC (0.0-0.2); Platelet Count 429 K/mm3 (150-400); RDW Coefficient Variation 15.1 % (11.7-14.2); RDW Standard Deviation 51.9 fL (35.1-46.3)
[2025-07-20 04:26] LABS: Alanine Aminotransfer (ALT/SGP 58.0 U/L (12-78); Albumin, Blood 1.8 g/dL (3.4-5.0); Albumin/Globulin Ratio 0.4 (0.8-1.8); Anion Gap 8.0 mmol/L (3-11); Aspartate Aminotrans (AST/SGOT 45.0 U/L (12-37); Bilirubin, Total 0.6 mg/dL (0.1-1.0); Blood Urea Nitrogen 21.0 mg/dL (8-24); CO2, Blood 25.0 mmol/L (21-32); Calcium, Blood 6.4 mg/dL (8.5-10.1); Chloride, Blood 102.0 mmol/L (98-108); Creatinine, Blood 1.03 mg/dL (0.40-1.00); Globulin, Blood 4.1 g/dL (2.2-4.0); Glucose, Blood 112.0 mg/dL (70-99); Potassium, Blood 4.4 mmol/L (3.5-5.5); Sodium, Blood 131.0 mmol/L (136-145); Total Protein, Blood 5.9 g/dL (6.4-8.2)
[2025-07-20 07:25] VITALS: BP 113/73
[2025-07-20] MEDS ORDERED: CefTRIAXone Sodium 1,000 MG in NS 100 ML IV SCH (09:00)
[2025-07-20 11:53] VITALS: BP 106/73
[2025-07-20] MEDS ORDERED: Ipratropium/Albuterol SulF 2.5-0.5MG/3 ML Amp INH PRN (15:10)
[2025-07-20 15:23] VITALS: BP 102/71
[2025-07-20 16:53] VITALS: BP 125/72
[2025-07-20] MEDS ORDERED: Ampicillin Sod/Sulbactam Sod 3 GM in NS 100 ML IV SCH (18:00)
[2025-07-20 22:53] VITALS: BP 132/85
[2025-07-21 00:15] VITALS: BP 127/73
[2025-07-21 04:41] VITALS: BP 133/68
[2025-07-21 07:22] VITALS: BP 139/94
[2025-07-21 11:52] VITALS: BP 126/80
[2025-07-21 15:29] VITALS: BP 136/89
[2025-07-21 16:32] LABS: Campylobacter Sp Not Detected (NOT DETECT); E. Coli O157 Not Detected (NOT DETECT); Enteroaggregative E. coli-EAEC Not Detected (NOT DETECT); Enteropathogenic E. coli-EPEC Not Detected (NOT DETECT); Enterotoxigenic E. coli-ETEC Not Detected (NOT DETECT); Salmonella Sp Not Detected (NOT DETECT); Shiga Toxin-prod E. coli-STEC Not Detected (NOT DETECT); Shigella/Enteroin E. coli-EIEC Not Detected (NOT DETECT); Vibrio Sp Not Detected (NOT DETECT)
[2025-07-21 20:14] VITALS: BP 129/77
[2025-07-21] MEDS ORDERED: Banana Flakes/Tos 1 EA Powder Pack PO SCH (21:00)
[2025-07-22 04:45] VITALS: BP 126/84
[2025-07-22 08:04] VITALS: BP 125/91
[2025-07-22 08:51] LABS: BASOPHILS ABSOLUTE AUTO 0.04 K/mm3 (0.00-0.23); BASOPHILS PERCENT AUTO 0 % (0-2); EOSINOPHILS ABSOLUTE AUTO 0.82 K/mm3 (0.00-0.68); EOSINOPHILS PERCENT AUTO 3 % (0-6); Hematocrit 32.3 % (33.0-51.0); Hemoglobin 10.3 g/dL (11.5-16.0); IMMATURE GRAN ABSOLUTE AUTO 0.34 K/mm3 (0.00-0.10); IMMATURE GRAN PERCENT AUTO 1 % (0-1); LYMPHOCYTES ABSOLUTE AUTO 1.19 K/mm3 (0.84-5.20); LYMPHOCYTES PERCENT AUTO 5 % (21-46); MONOCYTES ABSOLUTE AUTO 2.13 K/mm3 (0.16-1.47); MONOCYTES PERCENT AUTO 8 % (4-13); Mean Corpuscular HGB Conc 31.9 g/dL (31.5-36.5); Mean Corpuscular Volume 92 fL (80-100); NEUTROPHILS ABSOLUTE AUTO 20.80 K/mm3 (1.96-9.15); NEUTROPHILS PERCENT AUTO 82 % (41-73); NRBC ABSOLUTE 0.00 K/mm3 (0.00-0.02); NRBC Auto 0.0 /100 WBC (0.0-0.2); Platelet Count 435 K/mm3 (150-400); RDW Coefficient Variation 15.2 % (11.7-14.2); RDW Standard Deviation 51.4 fL (35.1-46.3)
[2025-07-22 09:11] VITALS: BP 118/82
[2025-07-22 09:15] LABS: Albumin, Blood 1.9 g/dL (3.4-5.0); Anion Gap 12 mmol/L (3-11); Blood Urea Nitrogen 17 mg/dL (8-24); CO2, Blood 20 mmol/L (21-32); Calcium, Blood 8.0 mg/dL (8.5-10.1); Chloride, Blood 105 mmol/L (98-108); Creatinine, Blood 0.94 mg/dL (0.40-1.00); Glucose, Blood 182 mg/dL (70-99); Magnesium, Blood 2.0 mg/dL (1.6-2.4); Phosphorus, Blood 1.9 mg/dL (2.5-4.9); Potassium, Blood 3.6 mmol/L (3.5-5.5); Sodium, Blood 133 mmol/L (136-145); Thyroid Stimulating Hormone 1.110 uIU/mL (0.360-4.800)
[2025-07-22 11:39] VITALS: BP 128/86
[2025-07-22] MEDS ORDERED: Piperacillin/Tazobactam Sod 4.5 GM in NS 100 ML IV SCH (13:00)
[2025-07-22] MEDS ORDERED: Vancomycin (Pharmacy Consult) IV SCH (13:00)
[2025-07-22 15:32] VITALS: BP 135/85
[2025-07-22 20:28] VITALS: BP 117/89
[2025-07-23 00:03] VITALS: BP 122/77
[2025-07-23 04:04] VITALS: BP 129/74
[2025-07-23 05:16] LABS: BASOPHILS ABSOLUTE AUTO 0.05 K/mm3 (0.00-0.23); BASOPHILS PERCENT AUTO 0 % (0-2); EOSINOPHILS ABSOLUTE AUTO 0.84 K/mm3 (0.00-0.68); EOSINOPHILS PERCENT AUTO 4 % (0-6); Hematocrit 32.6 % (33.0-51.0); Hemoglobin 10.2 g/dL (11.5-16.0); IMMATURE GRAN ABSOLUTE AUTO 0.41 K/mm3 (0.00-0.10); IMMATURE GRAN PERCENT AUTO 2 % (0-1); LYMPHOCYTES ABSOLUTE AUTO 1.84 K/mm3 (0.84-5.20); LYMPHOCYTES PERCENT AUTO 9 % (21-46); MONOCYTES ABSOLUTE AUTO 1.69 K/mm3 (0.16-1.47); MONOCYTES PERCENT AUTO 8 % (4-13); Mean Corpuscular HGB Conc 31.3 g/dL (31.5-36.5); Mean Corpuscular Volume 93 fL (80-100); NEUTROPHILS ABSOLUTE AUTO 16.44 K/mm3 (1.96-9.15); NEUTROPHILS PERCENT AUTO 77 % (41-73); NRBC ABSOLUTE 0.00 K/mm3 (0.00-0.02); NRBC Auto 0.0 /100 WBC (0.0-0.2); Platelet Count 449 K/mm3 (150-400); RDW Coefficient Variation 15.5 % (11.7-14.2); RDW Standard Deviation 53.3 fL (35.1-46.3)
[2025-07-23 05:46] LABS: Alanine Aminotransfer (ALT/SGP 35.0 U/L (12-78); Albumin, Blood 1.8 g/dL (3.4-5.0); Albumin/Globulin Ratio 0.4 (0.8-1.8); Anion Gap 9.0 mmol/L (3-11); Aspartate Aminotrans (AST/SGOT 30.0 U/L (12-37); Bilirubin, Total 0.7 mg/dL (0.1-1.0); Blood Urea Nitrogen 19.0 mg/dL (8-24); CO2, Blood 25.0 mmol/L (21-32); Calcium, Blood 8.1 mg/dL (8.5-10.1); Chloride, Blood 105.0 mmol/L (98-108); Creatinine, Blood 1.12 mg/dL (0.40-1.00); Globulin, Blood 4.3 g/dL (2.2-4.0); Glucose, Blood 98.0 mg/dL (70-99); Potassium, Blood 3.6 mmol/L (3.5-5.5); Sodium, Blood 135.0 mmol/L (136-145); Total Protein, Blood 6.1 g/dL (6.4-8.2)
[2025-07-23 07:08] VITALS: BP 134/93
[2025-07-23] MEDS ORDERED: Diltiazem HCl 5 MG / ML 5ML Vial IV ONE (11:00)
[2025-07-23] MEDS ORDERED: Diltiazem HCl 5 MG / ML 10ML Vial IV ONE (11:00)
[2025-07-23] MEDS ORDERED: Enoxaparin 40 MG/0.4 ML SYR SC ONE (11:20)
[2025-07-23 11:40] VITALS: BP 103/60
[2025-07-23 15:29] VITALS: BP 114/72
[2025-07-23] MEDS ORDERED: Furosemide 10 MG / ML 2ML Vial IV ONE (18:00)
[2025-07-23 19:28] VITALS: BP 105/70
[2025-07-24] VITALS (7 sets, daily range): BP systolic 101–117; BP diastolic 65–81
[2025-07-24 05:43] LABS: BASOPHILS ABSOLUTE AUTO 0.06 K/mm3 (0.00-0.23); BASOPHILS PERCENT AUTO 0 % (0-2); EOSINOPHILS ABSOLUTE AUTO 0.86 K/mm3 (0.00-0.68); EOSINOPHILS PERCENT AUTO 3 % (0-6); Hematocrit 30.6 % (33.0-51.0); Hemoglobin 9.9 g/dL (11.5-16.0); IMMATURE GRAN ABSOLUTE AUTO 0.51 K/mm3 (0.00-0.10); IMMATURE GRAN PERCENT AUTO 2 % (0-1); LYMPHOCYTES ABSOLUTE AUTO 1.47 K/mm3 (0.84-5.20); LYMPHOCYTES PERCENT AUTO 6 % (21-46); MONOCYTES ABSOLUTE AUTO 2.21 K/mm3 (0.16-1.47); MONOCYTES PERCENT AUTO 8 % (4-13); Mean Corpuscular HGB Conc 32.4 g/dL (31.5-36.5); Mean Corpuscular Volume 90 fL (80-100); NEUTROPHILS ABSOLUTE AUTO 21.76 K/mm3 (1.96-9.15); NEUTROPHILS PERCENT AUTO 81 % (41-73); NRBC ABSOLUTE 0.00 K/mm3 (0.00-0.02); NRBC Auto 0.0 /100 WBC (0.0-0.2); Platelet Count 405 K/mm3 (150-400); RDW Coefficient Variation 15.3 % (11.7-14.2); RDW Standard Deviation 50.2 fL (35.1-46.3)
[2025-07-24 06:04] LABS: Alanine Aminotransfer (ALT/SGP 30.0 U/L (12-78); Albumin, Blood 1.8 g/dL (3.4-5.0); Albumin/Globulin Ratio 0.4 (0.8-1.8); Anion Gap 8.0 mmol/L (3-11); Aspartate Aminotrans (AST/SGOT 25.0 U/L (12-37); Bilirubin, Total 0.7 mg/dL (0.1-1.0); Blood Urea Nitrogen 22.0 mg/dL (8-24); CO2, Blood 26.0 mmol/L (21-32); Calcium, Blood 8.3 mg/dL (8.5-10.1); Chloride, Blood 103.0 mmol/L (98-108); Creatinine, Blood 1.3 mg/dL (0.40-1.00); Globulin, Blood 4.3 g/dL (2.2-4.0); Glucose, Blood 113.0 mg/dL (70-99); Potassium, Blood 3.2 mmol/L (3.5-5.5); Sodium, Blood 134.0 mmol/L (136-145); Total Protein, Blood 6.1 g/dL (6.4-8.2)
[2025-07-24] MEDS ORDERED: Diltiazem HCl 5 MG / ML 5ML Vial IV ONE ×2 (08:40→08:55)
[2025-07-24 14:47] LABS: Automated BF RBC Count 0.010 M/mm3 (0-0); Automated BF WBC Count 0.896 K/mm3 (0-999)
[2025-07-24 14:48] LABS: RBC Count, Body Fluid 10000 /mm3 (0-0)
[2025-07-24 15:13] LABS: Albumin, Body Fluid 1.2 g/dL; Glucose, Body Fluid 153 mg/dL; Lactate Dehydrogenase, Body Fl 132 U/L
[2025-07-24 15:21] LABS: Color, Body Fluid Yellow (None-Yellow); Eosinophils, Fluid 4.0 % (0.0-10.0); Lymphocytes, Fluid 14.0 % (0.0-18.0); Monocytes/Mononuclear, Fluid 3.0 % (0.0-50.0); Neutrophils, Fluid 77.0 % (0.0-25.0); Total Cell Count, Body Fluid 100
[2025-07-24] MEDS ORDERED: NS 250 ML IV PRN (16:15)
[2025-07-25 03:21] VITALS: BP 118/68
[2025-07-25 07:22] VITALS: BP 122/79
[2025-07-25] MEDS ORDERED: Polyethylene Glycol 3350 17 gm PO PRN (08:05)
[2025-07-25 09:56] LABS: BASOPHILS ABSOLUTE AUTO 0.08 K/mm3 (0.00-0.23); BASOPHILS PERCENT AUTO 0 % (0-2); EOSINOPHILS ABSOLUTE AUTO 0.82 K/mm3 (0.00-0.68); EOSINOPHILS PERCENT AUTO 3 % (0-6); Hematocrit 33.7 % (33.0-51.0); Hemoglobin 10.8 g/dL (11.5-16.0); IMMATURE GRAN ABSOLUTE AUTO 0.99 K/mm3 (0.00-0.10); IMMATURE GRAN PERCENT AUTO 3 % (0-1); LYMPHOCYTES ABSOLUTE AUTO 2.18 K/mm3 (0.84-5.20); LYMPHOCYTES PERCENT AUTO 7 % (21-46); MONOCYTES ABSOLUTE AUTO 2.57 K/mm3 (0.16-1.47); MONOCYTES PERCENT AUTO 8 % (4-13); Mean Corpuscular HGB Conc 32.0 g/dL (31.5-36.5); Mean Corpuscular Volume 92 fL (80-100); NEUTROPHILS ABSOLUTE AUTO 24.34 K/mm3 (1.96-9.15); NEUTROPHILS PERCENT AUTO 79 % (41-73); NRBC ABSOLUTE 0.00 K/mm3 (0.00-0.02); NRBC Auto 0.0 /100 WBC (0.0-0.2); Platelet Count 288 K/mm3 (150-400); RDW Coefficient Variation 15.2 % (11.7-14.2); RDW Standard Deviation 51.2 fL (35.1-46.3)
[2025-07-25 10:33] LABS: Alanine Aminotransfer (ALT/SGP 28.0 U/L (12-78); Albumin, Blood 1.7 g/dL (3.4-5.0); Albumin/Globulin Ratio 0.4 (0.8-1.8); Anion Gap 11.0 mmol/L (3-11); Aspartate Aminotrans (AST/SGOT 29.0 U/L (12-37); Bilirubin, Total 0.7 mg/dL (0.1-1.0); Blood Urea Nitrogen 22.0 mg/dL (8-24); CO2, Blood 23.0 mmol/L (21-32); Calcium, Blood 8.4 mg/dL (8.5-10.1); Chloride, Blood 102.0 mmol/L (98-108); Creatinine, Blood 1.35 mg/dL (0.40-1.00); Globulin, Blood 4.8 g/dL (2.2-4.0); Glucose, Blood 130.0 mg/dL (70-99); Potassium, Blood 4.1 mmol/L (3.5-5.5); Sodium, Blood 132.0 mmol/L (136-145); Total Protein, Blood 6.5 g/dL (6.4-8.2)
[2025-07-25 11:37] VITALS: BP 105/68
[2025-07-25 15:44] VITALS: BP 113/75
[2025-07-25 19:26] VITALS: BP 113/68
[2025-07-25] MEDS ORDERED: Nystatin 100,000 Unit/ML Susp 5 ML UDC SS SCH (21:00)
[2025-07-25 23:49] VITALS: BP 110/68
[2025-07-26 04:35] VITALS: BP 110/65
[2025-07-26 05:12] LABS: BASOPHILS ABSOLUTE AUTO 0.08 K/mm3 (0.00-0.23); BASOPHILS PERCENT AUTO 0 % (0-2); EOSINOPHILS ABSOLUTE AUTO 0.65 K/mm3 (0.00-0.68); EOSINOPHILS PERCENT AUTO 2 % (0-6); Hematocrit 28.5 % (33.0-51.0); Hemoglobin 9.1 g/dL (11.5-16.0); IMMATURE GRAN ABSOLUTE AUTO 0.53 K/mm3 (0.00-0.10); IMMATURE GRAN PERCENT AUTO 2 % (0-1); LYMPHOCYTES ABSOLUTE AUTO 1.46 K/mm3 (0.84-5.20); LYMPHOCYTES PERCENT AUTO 5 % (21-46); MONOCYTES ABSOLUTE AUTO 1.84 K/mm3 (0.16-1.47); MONOCYTES PERCENT AUTO 7 % (4-13); Mean Corpuscular HGB Conc 31.9 g/dL (31.5-36.5); Mean Corpuscular Volume 91 fL (80-100); NEUTROPHILS ABSOLUTE AUTO 22.29 K/mm3 (1.96-9.15); NEUTROPHILS PERCENT AUTO 83 % (41-73); NRBC ABSOLUTE 0.00 K/mm3 (0.00-0.02); NRBC Auto 0.0 /100 WBC (0.0-0.2); Platelet Count 211 K/mm3 (150-400); RDW Coefficient Variation 15.4 % (11.7-14.2); RDW Standard Deviation 50.5 fL (35.1-46.3)
[2025-07-26 05:51] LABS: Alanine Aminotransfer (ALT/SGP 22.0 U/L (12-78); Albumin, Blood 1.5 g/dL (3.4-5.0); Albumin/Globulin Ratio 0.4 (0.8-1.8); Anion Gap 9.0 mmol/L (3-11); Aspartate Aminotrans (AST/SGOT 32.0 U/L (12-37); Bilirubin, Total 0.7 mg/dL (0.1-1.0); Blood Urea Nitrogen 24.0 mg/dL (8-24); CO2, Blood 25.0 mmol/L (21-32); Calcium, Blood 7.9 mg/dL (8.5-10.1); Chloride, Blood 102.0 mmol/L (98-108); Creatinine, Blood 1.26 mg/dL (0.40-1.00); Globulin, Blood 4.1 g/dL (2.2-4.0); Glucose, Blood 114.0 mg/dL (70-99); Potassium, Blood 3.9 mmol/L (3.5-5.5); Sodium, Blood 132.0 mmol/L (136-145); Total Protein, Blood 5.6 g/dL (6.4-8.2)
[2025-07-26 07:25] VITALS: BP 101/58
[2025-07-26] MEDS ORDERED: Lactobacil 2-S.Thermo-Bifido 1 1 Cap PO SCH (10:00)
[2025-07-26] MEDS ORDERED: NYSTATIN100000 U10 MT (12:41)
[2025-07-26] MEDS ORDERED: VISBIOME 112.51 EACH PO (12:42)
[2025-07-26] MEDS ORDERED: AMOCLA875 PO (12:42)
[2025-07-26] MEDS ORDERED: MIRALAX17 GM PO (12:42)
== END 2025-07-26 15:05 | disposition home or self-care (01) | DRG 871 ==
LOC: ER 08:25 → MEDS 10:39 → PCU 10:39 → MEDS 07-20 16:55
PROVIDERS: Internal Medicine; Registered Nurse; Student in an Organized Health Care Education/Training Program; ADMIT Hospitalist
PROC: 3E03329 Introduction of Other Anti-infective into Peripheral Vein, Percutaneous Approach (ICD-10-PCS; principal; 2025-07-24)
PROC: 0W993ZX Drainage of Right Pleural Cavity, Percutaneous Approach, Diagnostic (ICD-10-PCS; 2025-07-24)
DX: A41.9 Sepsis, unspecified organism (principal); J18.9 Pneumonia, unspecified organism; J69.0 Pneumonitis due to inhalation of food and vomit; J96.01 Acute respiratory failure with hypoxia; I47.19 Other supraventricular tachycardia; I50.22 Chronic systolic (congestive) heart failure; J91.0 Malignant pleural effusion; C80.1 Malignant (primary) neoplasm, unspecified; I48.91 Unspecified atrial fibrillation; M35.3 Polymyalgia rheumatica; M79.7 Fibromyalgia; N18.30 Chronic kidney disease, stage 3 unspecified; K21.9 Gastro-esophageal reflux disease without esophagitis; F32.A Depression, unspecified; Z88.8 Allergy status to other drugs, medicaments and biological substances; Z79.01 Long term (current) use of anticoagulants; Z79.899 Other long term (current) drug therapy; L50.8 Other urticaria; R54 Age-related physical debility; Z87.19 Personal history of other diseases of the digestive system
CPT/HCPCS: 32555; 36415; 71045; 71260; 80053; 80069; 82042; 82945; 83605; 83615; 83735; 83986; 84157; 84443; 85025; 85060; 87040; 87081; 87507; 88108; 88305; 89051; 92526; 92610; 93005; 93010; 93306; 94640; 94664; 94760; 94762; 96365; 96375; 96376; 97112; 97116; 97161; 97165; 97530; 97535; 99285-25; A9270; C1751; J0295; J0456; J0696; J1650; J1938; J2543; J3373; J3475; J7030; J7040; J7050; J7512; Q9967

== ENCOUNTER 2025-07-28 10:17 | Inpatient (IN) | payer OTHER ==
[2025-07-28] VITALS (12 sets, daily range): BP systolic 88–107; BP diastolic 56–78
[~2025-07-28] VITALS: Ht 162.6 cm; Wt 103.2 kg
[~2025-07-28 10:17] MED LIST changes: +AMOCLA875 PO; +MIRALAX17 GM PO; +NYSTATIN100000 U10 MT; +VISBIOME 112.51 EACH PO
[2025-07-28] MEDS ORDERED: Ipratropium/Albuterol SulF 2.5-0.5MG/3 ML Amp INH ONE (10:25)
[2025-07-28] MEDS ORDERED: Cefepime HCl 2,000 MG in NS 100 ML IV ONE (10:30)
[2025-07-28] MEDS ORDERED: LevoFLOXacin 750 MG/D5W 150ML 150 ML IV ONE (10:30)
[2025-07-28] MEDS ORDERED: Vancomycin (Pharmacy Consult) IV PRN (10:30)
[2025-07-28 10:41] LABS: pH Blood Venous 7.42 (7.34-7.37)
[2025-07-28 10:43] LABS: BASOPHILS ABSOLUTE AUTO 0.09 K/mm3 (0.00-0.23); BASOPHILS PERCENT AUTO 0 % (0-2); EOSINOPHILS ABSOLUTE AUTO 0.23 K/mm3 (0.00-0.68); EOSINOPHILS PERCENT AUTO 1 % (0-6); Hematocrit 31.4 % (33.0-51.0); Hemoglobin 10.2 g/dL (11.5-16.0); IMMATURE GRAN ABSOLUTE AUTO 1.00 K/mm3 (0.00-0.10); IMMATURE GRAN PERCENT AUTO 3 % (0-1); LYMPHOCYTES ABSOLUTE AUTO 1.76 K/mm3 (0.84-5.20); LYMPHOCYTES PERCENT AUTO 5 % (21-46); MONOCYTES ABSOLUTE AUTO 1.97 K/mm3 (0.16-1.47); MONOCYTES PERCENT AUTO 5 % (4-13); Mean Corpuscular HGB Conc 32.5 g/dL (31.5-36.5); Mean Corpuscular Volume 89 fL (80-100); NEUTROPHILS ABSOLUTE AUTO 31.46 K/mm3 (1.96-9.15); NEUTROPHILS PERCENT AUTO 86 % (41-73); NRBC ABSOLUTE 0.00 K/mm3 (0.00-0.02); NRBC Auto 0.0 /100 WBC (0.0-0.2); Platelet Count 218 K/mm3 (150-400); RDW Coefficient Variation 15.1 % (11.7-14.2); RDW Standard Deviation 48.8 fL (35.1-46.3)
[2025-07-28 10:59] LABS: Anion Gap 9.0 mmol/L (3-11); Blood Urea Nitrogen 21.0 mg/dL (8-24); CO2, Blood 25.0 mmol/L (21-32); Calcium, Blood 8.8 mg/dL (8.5-10.1); Chloride, Blood 104.0 mmol/L (98-108); Creatinine, Blood 1.18 mg/dL (0.40-1.00); Glucose, Blood 156.0 mg/dL (70-99); Potassium, Blood 3.6 mmol/L (3.5-5.5); Sodium, Blood 134.0 mmol/L (136-145)
[2025-07-28 11:21] LABS: Influenza A, PCR NEGATIVE (NEGATIVE); Influenza B, PCR NEGATIVE (NEGATIVE); Resp Syncytial Virus, PCR NEGATIVE (NEGATIVE); SARS-Cov-2 (COVID-19) PCR, MMC NEGATIVE (NEGATIVE)
[2025-07-28] MEDS ORDERED: NS 1,000 ML IV ONE ×2 (13:28→13:50)
[2025-07-28] MEDS ORDERED: NS 1,000 ML IV SCH (13:50)
--- NOTE | 2025-07-28 15:15 | NUR ---
ASSUMPTION OF CARE PT BROUGHT TO ICU 13 AT THIS TIME. SHE IS ALERT AND ORIENTED, PARTICIPATES IN CONVERSATION. O2 TITRATED TO 6L NC. PT DENIES SOB AND SPO2 100%. SINUS ON MONITOR WITH RATE IN 70S. MAP >65. PT DENIES CP. TEMP ABBOTT PATENT WITH CORE TEMP 98.3 UPON ARRIVAL. PT HAS A MEDIPORT THAT WAS RECENTLY PLACED AND STS SHE IS SUPPOSED TO START CHEMO 07/31/[address] HANNA. BED IN LOW POSITION, CALL LIGHT WITHIN REACH.
--- NOTE | 2025-07-28 18:23 | NUR ---
SHIFT SUMMARY PT RECEIVING NS 125ML/HR. SHE IS ALERT AND ORIENTED. SHE IS ON 4L NC AND TOLERATING WELL. DENIES SOB. SINUS ON MONITOR WITH RATE IN 70S. BP STABLE WITH MAP >65. PT REPORTS DECREASED APPETITE LATELY AND REFUSED DINNER. NO BM SINCE ADMISSION. TEMP ABBOTT PATENT AND DRAINING TO GRAVITY. BED IN LOW POSITION, CALL LIGHT WITHIN REACH. PT HAS A MEDIPORT THAT IS NOT ACCESSED. SITE IS BRUISED AND STS IT HAS NOT BEEN ACCESSED YET. PT'S DAUGHTER EXPRESSES CONCERN REGARDING CURRENT LIVING SITUATION. PT LIVES WITH HER ELDERLY FATHER WHO IS UNABLE TO PROVIDE CARE FOR HER. PT'S CHILDREN LIVE OUT OF TOWN AND ARE WILLING TO HELP BUT UNABLE TO PROVIDE FULL CARE AND TRANSPORTATION. CARE MANAGEMENT CONSULT PLACED.
--- NOTE | 2025-07-28 20:05 | NUR ---
ASSUMPTION OF CARE: ASSUMED CARE AT START OF SHIFT (1899). REPORT RECEIVED FROM DAY SHIFT RN. PT IS DOING WELL AND RESTING IN BED. PT IS ALERT AND FOLLOWING COMMANDS. PT DENIES ANY PAIN, CP, OR SOB AT THIS TIME. LUNG SOUNDS ARE CLEAR AND EQUAL BILATERALLY, ON RA WITH SPO2 >95%. SINUS RYTHM SBP: 90'S MAP >65 HR: 70-80'S. IV: PERIPHERAL IN LAC AND L AHND, POWERGLID IN RUE, MEDIPORT IN R UPPER CHEST THAT IS NOT ACCESSED. TEMP ABBOTT IN PLACE AND DRAINING TO GRAVITY. LINES, CORDS, AND TUBE PLACED OUT OF REACH. CALL LIGHT PLACED WITHIN REACH.
[2025-07-28] MEDS ORDERED: Cefepime HCl 2,000 MG in NS 100 ML IV SCH (21:00)
[2025-07-29] VITALS (21 sets, daily range): BP systolic 12–127; BP diastolic 56–88
[2025-07-29 04:08] LABS: BASOPHILS ABSOLUTE AUTO 0.06 K/mm3 (0.00-0.23); BASOPHILS PERCENT AUTO 0 % (0-2); EOSINOPHILS ABSOLUTE AUTO 0.00 K/mm3 (0.00-0.68); EOSINOPHILS PERCENT AUTO 0 % (0-6); Hematocrit 31.2 % (33.0-51.0); Hemoglobin 10.1 g/dL (11.5-16.0); IMMATURE GRAN ABSOLUTE AUTO 0.56 K/mm3 (0.00-0.10); IMMATURE GRAN PERCENT AUTO 2 % (0-1); LYMPHOCYTES ABSOLUTE AUTO 1.48 K/mm3 (0.84-5.20); LYMPHOCYTES PERCENT AUTO 5 % (21-46); MONOCYTES ABSOLUTE AUTO 0.89 K/mm3 (0.16-1.47); MONOCYTES PERCENT AUTO 3 % (4-13); Mean Corpuscular HGB Conc 32.4 g/dL (31.5-36.5); Mean Corpuscular Volume 90 fL (80-100); NEUTROPHILS ABSOLUTE AUTO 27.22 K/mm3 (1.96-9.15); NEUTROPHILS PERCENT AUTO 90 % (41-73); NRBC ABSOLUTE 0.00 K/mm3 (0.00-0.02); NRBC Auto 0.0 /100 WBC (0.0-0.2); Platelet Count 225 K/mm3 (150-400); RDW Coefficient Variation 15.4 % (11.7-14.2); RDW Standard Deviation 50.2 fL (35.1-46.3)
[2025-07-29 04:09] LABS: pH Blood Venous 7.38 (7.34-7.37)
[2025-07-29 04:30] LABS: Alanine Aminotransfer (ALT/SGP 21.0 U/L (12-78); Albumin, Blood 1.4 g/dL (3.4-5.0); Albumin/Globulin Ratio 0.3 (0.8-1.8); Anion Gap 12.0 mmol/L (3-11); Aspartate Aminotrans (AST/SGOT 28.0 U/L (12-37); Bilirubin, Total 0.4 mg/dL (0.1-1.0); Blood Urea Nitrogen 26.0 mg/dL (8-24); CO2, Blood 24.0 mmol/L (21-32); Calcium, Blood 8.3 mg/dL (8.5-10.1); Chloride, Blood 105.0 mmol/L (98-108); Creatinine, Blood 1.17 mg/dL (0.40-1.00); Globulin, Blood 4.4 g/dL (2.2-4.0); Glucose, Blood 128.0 mg/dL (70-99); Magnesium, Blood 2.2 mg/dL (1.6-2.4); Phosphorus, Blood 4.0 mg/dL (2.5-4.9); Potassium, Blood 3.6 mmol/L (3.5-5.5); Sodium, Blood 137.0 mmol/L (136-145); Total Protein, Blood 5.8 g/dL (6.4-8.2)
--- NOTE | 2025-07-29 06:08 | NUR ---
SHIFT SUMMARY: PT IS DOING WEL AND RESTING IN BED. NO ACUTE CHANGED THROUGHOUT THE SHIFT. PT WAS ABLE TO SLEEP FOR MOST OF THE NIGHT. SPO2 DROPPED INTO THE 80'S WHILE PT WAS SLEEPING, PT PLACED ON O2 @ 2LPM VIA NC AND SPO2 >95%. THE REST OF THE VITAL WERE STABLE. LINES, CORDS, AND TUBES PLACED OUT OF REACH. CALL LIGHT PLACED WITHIN REACH.
--- NOTE | 2025-07-29 07:00 | NUR ---
ASSUMPTION OF CARE PT IS ALERT AND ORIENTED. SHE IS ON 2L NC. REPORTS BREATHING FEELS BETTER THAN YESTERDAY. SHE STS SHE STILL "BREATHES FAST SOMETIMES" BECAUSE SHE FEELS LIKE SHE IS NOT GETTING ENOUGH AIR. RR MAINTAINING IN LOW 20S. SINUS ON MONITOR WITH RATE 70S-80S. MAP >65. TOLERATING PO FLUIDS WELL. CONTINUES TO HAVE DECREASED APPETITE. PT PROVIDED STOOL SAMPLE THIS AM. TEMP ABBOTT PATENT AND DRAINING TO GRAVITY. CORE TEMP 98.4. PT ENCOURAGED TO SIT IN CHAIR FOR BREAKFAST, DECLINES AT THIS TIME. BED IN LOW POSITION, CALL LIGHT WITHIN REACH.
[2025-07-29] MEDS ORDERED: Lactobacil 2-S.Thermo-Bifido 1 1 Cap PO SCH (08:00)
[2025-07-29] MEDS ORDERED: Cefepime HCl 2,000 MG in NS 100 ML IV SCH (08:00)
[2025-07-29 08:24] LABS: C DIFFICILE DNA NEGATIVE (Negative)
[2025-07-29] MEDS ORDERED: Polyethylene Glycol 3350 17 gm PO PRN (09:00)
[2025-07-29] MEDS ORDERED: NS 250 ML IV PRN (15:35)
--- NOTE | 2025-07-29 18:53 | NUR ---
SHIFT SUMMARY PT REMAINS ALERT AND ORIENTED. SHE HAS BEEN ON RA THROUGHOUT THE DAY. MAP REMAINED >65. DENIES CP. PT SAT IN RECLINER FOR A FEW HOURS AND AMBULATED AROUND THE ROOM WITH WALKER AND GAIT BELT. PT REPORTS FEELING SOB AND TAKING SHALLOW BREATHS. PT RESPONSIVE TO DEEP BREATHING TEACHING. MULTIPLE BMS THIS SHIFT. ABBOTT REMOVED AND ABLE TO VOID POST REMOVAL. FAMILY AND FRIENDS AT BEDSIDE THROUGHOUT THE DAY. BED IN LOW POSITION, CALL LIGHT WITHIN REACH.
--- NOTE | 2025-07-29 20:20 | NUR ---
ASSUMTPION OF CARE: ASSUMED CARE AT START OF SHIFT (1899). REPORT RECEIVED FROM DAY SHIFT RN. PT IS DOING WELL AND RESTING IN BED. PT IS ALERT AND FOLLOWING ALL COMMANDS. PT STAES THAT THEY ARE HAVING 6/10 BILATERAL HIP PAIN BUT NO CP OR SOB AT THIS TIME. LUNG SOUNDS ARE CLEAR AND EQUAL BILATERALLY, ON RA WITH SPO2 >95%. SBP: 100-110'S MAP >65 HR: 80-90'S. IV: POWERGLIDE IN RUE AND PERIPHERAL IN L HAND. PT IS ABLE TO STAND AND WALK TO TOILET VIA 1-PERSON ASSIST. LINES AND CORDS PLACED OUT OF REACH. CALL LIGHT PLACED WITHIN REACH.
[2025-07-30] VITALS (14 sets, daily range): BP systolic 82–136; BP diastolic 12–90
[2025-07-30 04:00] LABS: BASOPHILS ABSOLUTE AUTO 0.08 K/mm3 (0.00-0.23); BASOPHILS PERCENT AUTO 0 % (0-2); EOSINOPHILS ABSOLUTE AUTO 0.16 K/mm3 (0.00-0.68); EOSINOPHILS PERCENT AUTO 0 % (0-6); Hematocrit 34.6 % (33.0-51.0); Hemoglobin 11.2 g/dL (11.5-16.0); IMMATURE GRAN ABSOLUTE AUTO 1.23 K/mm3 (0.00-0.10); IMMATURE GRAN PERCENT AUTO 3 % (0-1); LYMPHOCYTES ABSOLUTE AUTO 1.91 K/mm3 (0.84-5.20); LYMPHOCYTES PERCENT AUTO 5 % (21-46); MONOCYTES ABSOLUTE AUTO 2.23 K/mm3 (0.16-1.47); MONOCYTES PERCENT AUTO 6 % (4-13); Mean Corpuscular HGB Conc 32.4 g/dL (31.5-36.5); Mean Corpuscular Volume 89 fL (80-100); NEUTROPHILS ABSOLUTE AUTO 33.51 K/mm3 (1.96-9.15); NEUTROPHILS PERCENT AUTO 86 % (41-73); NRBC ABSOLUTE 0.00 K/mm3 (0.00-0.02); NRBC Auto 0.0 /100 WBC (0.0-0.2); Platelet Count 210 K/mm3 (150-400); RDW Coefficient Variation 15.5 % (11.7-14.2); RDW Standard Deviation 50.1 fL (35.1-46.3)
[2025-07-30 04:17] LABS: Alanine Aminotransfer (ALT/SGP 21.0 U/L (12-78); Albumin, Blood 1.4 g/dL (3.4-5.0); Albumin/Globulin Ratio 0.4 (0.8-1.8); Anion Gap 11.0 mmol/L (3-11); Aspartate Aminotrans (AST/SGOT 26.0 U/L (12-37); Bilirubin, Total 0.4 mg/dL (0.1-1.0); Blood Urea Nitrogen 38.0 mg/dL (8-24); CO2, Blood 22.0 mmol/L (21-32); Calcium, Blood 8.3 mg/dL (8.5-10.1); Chloride, Blood 105.0 mmol/L (98-108); Creatinine, Blood 1.4 mg/dL (0.40-1.00); Globulin, Blood 3.9 g/dL (2.2-4.0); Glucose, Blood 162.0 mg/dL (70-99); Potassium, Blood 4.0 mmol/L (3.5-5.5); Sodium, Blood 134.0 mmol/L (136-145); Total Protein, Blood 5.3 g/dL (6.4-8.2)
--- NOTE | 2025-07-30 06:26 | NUR ---
SHIFT SUMMARY: PT IS DOING WELL AND RESTING IN BED. NO ACUTE CHANGES THROUGHOUT THE SHIFT. PT WAS ABLE TO SLEEP FOR PART OF THE NIGHT. VITAL SIGNS HAVE BEEN STABLE. LINES AND CORDS PLACED OUT OF REACH. CALL LIGHT PLACED WITHIN REACH.
[2025-07-30] MEDS ORDERED: NS 1,000 ML IV SCH ×2 (08:00→18:00)
--- NOTE | 2025-07-30 13:31 | NUR ---
PALLIATIVE CARE VISIT: CONSULT RECEIVED TO DISCUSS POLST WITH PT. DAUGHTER NAS IS PRESENT FOR MEETING. PT ABLE TO MAKE INFORMED DECISIONS. EDUCATED PT ON POLST, CPR VS DNR. PT CHOSE DNR, SELECTIVE TREATMENT. POLST COMPLETED AND DR. DAVIS SIGNED. GAVE ORDER TO CHANGE CODE STATUS TO DNR. ORDER PLACED. COPY OF POLST SENT TO POLST REGISTRY AND AND MEDICAL RECORDS. ORIGINAL GIVEN BACK TO PT. PT ALSO EXPRESSED CONCERNS ABOUT LIVING SITUATION. SHE LIVES WITH HER FATHER WHO IS 90 YEARS OLD. PT STATES SHE NEEDS CONSIDERABLE HELP IF SHE GOES HOME AND HER DAD CANNOT CARE FOR HER NEEDS. PT IS REQUESTING INFORMATION ABOUT RESOURCES FOR HOME. SENT CM A MESSAGE ABOUT CONCERNS. PT DENIES ANY UNCONTROLLED PAIN, NAUSEA, SOB. DOES C/O DECREASED APPETITE. SHE DOES HAVE BROOMCORN THRESHER CONSULT. PT HAS NOT LOST WEIGHT, SHE DOES DRINK ENSURES DAILY. STATES FOOD "TASTES BLAH".
[2025-07-30 14:01] LABS: Vancomycin, Trough 29.1 ug/mL (5.0-10.0)
--- NOTE | 2025-07-30 18:43 | NUR ---
Assumed care of patient at 07:15, during shift assessment found patient diaphoretic, placed patient on telemetry per order, found patient to be tachycardic. Was unable to obtain temporal or oral temperature on patient, therefore placed a rectal probe for accurate reading, found patient with low grade fever (100.1 f) Dr Daigle at bedside ~09:00, per Dr Pilo rodriguez to give Tylenol for fever (see MAR for administration and result) fever subsided after dose of Tylenol as well as decrease in heart rate. Patient in morning wanted to get out of bed to use bedside commode. Required to use lift due to patient weakness. Patient complained of dizziness while sitting on bedside commode. Returned to bed via lift. Urine output remained low, IVF started at 125ml/hr per order. By 12:00 patient was not diaphoretic and stated she felt better, was willing to participate with therapy and was able to get out of bed to chair under her own power and returned to bed under own power without complains of dizziness. (see ADL flowsheet for time out of bed) At 17:00 discussed low blood pressures SBP in 80's and MAP's low 60's (see vital sign flowsheet) as well as reported bladder scan reading of 798ml. Dr Lopez order 1 liter Normal Saline bolus, Midodrine and urinary catheter. BP improved on the 18:00 vital signs. Bacon was placed, <10ml of urine returned. Suspect erroneous reading on bladder scan due to edematous state of patient, will continue maintaining bacon until able to readdress need with MD.
[2025-07-30] MEDS ORDERED: Cefepime HCl 2,000 MG in NS 100 ML IV SCH (21:00)
[2025-07-31] VITALS (11 sets, daily range): BP systolic 80–128; BP diastolic 54–95
[2025-07-31 04:30] LABS: Hematocrit 31.7 % (33.0-51.0); Hemoglobin 10.0 g/dL (11.5-16.0); Mean Corpuscular HGB Conc 31.5 g/dL (31.5-36.5); Mean Corpuscular Volume 90 fL (80-100); NRBC ABSOLUTE 0.00 K/mm3 (0.00-0.02); NRBC Auto 0.0 /100 WBC (0.0-0.2); Platelet Count 159 K/mm3 (150-400); RDW Coefficient Variation 15.8 % (11.7-14.2); RDW Standard Deviation 51.7 fL (35.1-46.3)
[2025-07-31 04:49] LABS: Alanine Aminotransfer (ALT/SGP 26 U/L (12-78); Albumin, Blood 1.3 g/dL (3.4-5.0); Albumin/Globulin Ratio 0.3 (0.8-1.8); Anion Gap 11 mmol/L (3-11); Aspartate Aminotrans (AST/SGOT 37 U/L (12-37); Bilirubin, Total 0.4 mg/dL (0.1-1.0); Blood Urea Nitrogen 46 mg/dL (8-24); CO2, Blood 20 mmol/L (21-32); Calcium, Blood 8.0 mg/dL (8.5-10.1); Chloride, Blood 108 mmol/L (98-108); Creatinine, Blood 1.68 mg/dL (0.40-1.00); Globulin, Blood 4.0 g/dL (2.2-4.0); Glucose, Blood 109 mg/dL (70-99); Potassium, Blood 3.6 mmol/L (3.5-5.5); Sodium, Blood 135 mmol/L (136-145); Total Protein, Blood 5.3 g/dL (6.4-8.2); Vancomycin, Random 24.5 ug/mL
[2025-07-31 04:57] LABS: BAND PERCENT MAN 5 % (0-8); BASOPHILS ABSOLUTE MAN 0.00 K/mm3 (0.00-0.23); BASOPHILS PERCENT MAN 0 % (0-2); EOSINOPHILS ABSOLUTE MAN 0.32 K/mm3 (0.00-0.68); EOSINOPHILS PERCENT MAN 1 % (0-6); LYMPHOCYTES ABSOLUTE MAN 1.29 K/mm3 (0.84-5.20); LYMPHOCYTES PERCENT MAN 4 % (21-46); METAMYELOCYTE ABSOLUTE MAN 0.32 K/mm3 (0.00-0.00); METAMYELOCYTE PERCENT MAN 1 % (0-0); MONOCYTES ABSOLUTE MAN 1.61 K/mm3 (0.16-1.47); MONOCYTES PERCENT MAN 5 % (4-13); NEUTROPHILS ABSOLUTE MAN 28.73 K/mm3 (1.96-9.15); SEG NEUTROPHILS PERCENT MAN 84 % (41-73)
[2025-07-31 09:59] LABS: Source, Urine Foley catheter
[2025-07-31 10:02] LABS: Bilirubin, Urine Neg (Neg); Color, Urine Yellow (P-Yellow); Glucose Qualitative, Urine Neg (Neg); Ketones, Urine 1+ (Neg); Leukocyte Esterase, Urine 2+ (Neg); Protein, Urine 3+ (Neg); Specific Gravity, Urine 1.025 (1.003-1.022); Urobilinogen, Urine NORM (Normal)
--- NOTE | 2025-07-31 10:15 | NUR ---
Spiritual Care Visit. Pt. is awake in bed when she welcomes my visit. Pt. is pleasant as she bravely verbalizes about her current cancer diagnosis. Listen with empathy and a pastoral presence. Pt. verbalizes that she is a woman of ham. Considered matters of ham and belief. Pt. verbalizes that she has good support from her yazidism. At the Pts. requested we prayed together. pt. verbalized gratitude for the spiritual care visit and welcomed this pododermatologist to return.
[2025-07-31 10:22] LABS: Red Blood Cells, Urine 25-50 /hpf (0-2)
--- NOTE | 2025-07-31 18:36 | NUR ---
PALLIATIVE CARE VISIT: MET WITH PT TO DISCUSS ANY CONCERNS SHE HAS. NO FAMILY IS PRESENT WITH THIS MEETING. PT DOES EXPRESS CONCERNS SHE WILL NOT GET BETTER. SHE STATES SHE FEELS TOO WEAK. SHE IS WORRIED SHE WILL NOT BE ABLE TO CARE FOR HERSELF. PT IS AGREEABLE TO DISCUSSING ALL THE OPTIONS AVAILABLE AND WHAT THOSE OUTCOMES MAY BE. WE DISCUSS REHAB, GOING HOME, AND HOME WITH HOSPICE SERVICES. PT EDUCATED ON WHAT HOSPICE SERVICES WILL PROVIDE, IT CAN BE REVOKED AT ANY TIME PT FEELS WELL ENOUGH TO SEEK TREATMENT. PT WANTS TIME TO CONSIDER HER OPTIONS. SHE DOES NOT WANT HER DAUGHTER INCLUDED IN CONVERSATION UNTIL SHE IS READY TO LET HER DAUGHTER KNOW WHAT SHE WANTS TO DO.
--- NOTE | 2025-07-31 19:29 | NUR ---
Assumed care of patient at 07:15, spoke with Dr Payne this morning at patient's bedside during her rounds. Dr. Payne wants to keep urinary catheter in for accurate I&O's on patient, does not want patient to have PO intake after breakfast until she can verify that a RAE will be indicated for infectious workup and she will be ordering a urine analysis for infection workup. On addressing BP goals for the day, Dr Payne want BP goals to be directed for a MAP >65 Patient on exam she stated that her breathing is "worse" than previous day and did appear uncomfortable breathing. See Shift Assessment for full findings. Patient worked with Physical Therapy got out of bed to chair ~11:45. Noted her heart rate was elevated to the 140's, appeared to be sinus on monitor. Patient remained in chair until 12:00 when she departed the ICU for CT (ABD & pelvis) and returned to bed at 12:20 when she returned to the ICU. During this time patient was not symptomatic. When patient remained tachycardic repeat BP taken and was 87/70, no changes in physical exam noted. Updated Dr Payne with vital sign values at 13:10, okay with scheduled PO Midodrine to be given with sips as she has yet to verify need for RAE. Patient remained tachycardic for the next two hours. Called Dr Payne at 15:23 conversed concerns of continued high HR and expressed suspicion that this is perhaps 2:1 flutter as the P-R measurement was 0.07, could not definitively identify a p wave "hiding" in the t-wave formation. MD did not want to have pharmaceutical intervention for tachycardia due to BP variances. did decide to order RAE due to heart changes and a 12-lead. MD also shared plans to have IR take out mediport and have cultured when IR is able to schedule. 12-lead taken and put in chart. Machine read was sinus tachycardia with shortened p-r interval. Patient's daughter, Hunter Su updated on phone of the day's events and plans at 15:45. At 17:22 noted HR dropped to the 70's, retook BP which was 82/60 and MAP of 66. Dr Payne updated via phone of HR change.
[2025-08-01] VITALS (32 sets, daily range): BP systolic 66–120; BP diastolic 41–106
[2025-08-01 03:38] LABS: Hematocrit 28.7 % (33.0-51.0); Hemoglobin 9.2 g/dL (11.5-16.0); Mean Corpuscular HGB Conc 32.1 g/dL (31.5-36.5); Mean Corpuscular Volume 89 fL (80-100); NRBC ABSOLUTE 0.00 K/mm3 (0.00-0.02); NRBC Auto 0.0 /100 WBC (0.0-0.2); Platelet Count 153 K/mm3 (150-400); RDW Coefficient Variation 15.9 % (11.7-14.2); RDW Standard Deviation 51.7 fL (35.1-46.3)
[2025-08-01 04:01] LABS: Alanine Aminotransfer (ALT/SGP 30.0 U/L (12-78); Albumin, Blood 1.1 g/dL (3.4-5.0); Albumin/Globulin Ratio 0.3 (0.8-1.8); Anion Gap 13.0 mmol/L (3-11); Aspartate Aminotrans (AST/SGOT 43.0 U/L (12-37); Bilirubin, Total 0.5 mg/dL (0.1-1.0); Blood Urea Nitrogen 57.0 mg/dL (8-24); CO2, Blood 17.0 mmol/L (21-32); Calcium, Blood 8.1 mg/dL (8.5-10.1); Chloride, Blood 108.0 mmol/L (98-108); Creatinine, Blood 2.2 mg/dL (0.40-1.00); Globulin, Blood 4.1 g/dL (2.2-4.0); Glucose, Blood 106.0 mg/dL (70-99); Potassium, Blood 3.5 mmol/L (3.5-5.5); Sodium, Blood 134.0 mmol/L (136-145); Total Protein, Blood 5.2 g/dL (6.4-8.2)
[2025-08-01 04:44] LABS: BAND PERCENT MAN 5 % (0-8); BASOPHILS ABSOLUTE MAN 0.00 K/mm3 (0.00-0.23); BASOPHILS PERCENT MAN 0 % (0-2); EOSINOPHILS ABSOLUTE MAN 1.28 K/mm3 (0.00-0.68); EOSINOPHILS PERCENT MAN 4 % (0-6); LYMPHOCYTES ABSOLUTE MAN 1.92 K/mm3 (0.84-5.20); LYMPHOCYTES PERCENT MAN 6 % (21-46); MONOCYTES ABSOLUTE MAN 1.28 K/mm3 (0.16-1.47); MONOCYTES PERCENT MAN 4 % (4-13); MYELOCYTE ABSOLUTE MAN 0.32 K/mm3 (0.00-0.00); MYELOCYTE PERCENT MAN 1 % (0-0); NEUTROPHILS ABSOLUTE MAN 27.31 K/mm3 (1.96-9.15); SEG NEUTROPHILS PERCENT MAN 80 % (41-73)
--- NOTE | 2025-08-01 05:21 | NUR ---
SHIFT SUMMARY PT A/OX4, RESPONDS AND CALLS APPROPRIATLY. MAKES NEEDS KNOWN. SLOW TO RESPOND SOMETIMES. ON ROOM AIR, SATS >94%, NO C/O SOB. SINUS, HR 70-80'S, MAPS > 65. DENIES CP/PRESSURE. TOLERATING PO INTAKE. MINIMAL UOP NOTED, PROVIDER AWARE. NO BM THIS SHIFT. PT WAS ABLE TO SLEEP T/O MOST OF SHIFT. AFEBRILE. NO ACUTE EVENTS. CALL LIGHT IN REACH.
[2025-08-01] MEDS ORDERED: Albumin (Human) 25gm/100ml 100 ML IV PRN (11:05)
[2025-08-01] MEDS ORDERED: Benzocaine Oral Spray 0.5ML UD ONE (13:01)
[2025-08-01] MEDS ORDERED: Atropine Sulfate 1% Opth Soln 2ML BTL SL PRN (14:30)
[2025-08-01] MEDS ORDERED: Morphine Sulfate 20 MG/1ML 1 ML Oral Syringe SL PRN (14:30)
--- NOTE | 2025-08-01 14:58 | NUR ---
ROUNDED ON PATIENT, FAMILY AT BEDSIDE, HER DAUGHTER, AND BROTHER. DISCUSSION ABOUT GOALS. FAMILY AND PATIENT WANT HER TO TRANSITION TO COMFORT CARE. CALL PLACED TO PROVIDER AND ORDERS PLACED
--- NOTE | 2025-08-01 18:44 | NUR ---
SHIFT SUMMARY NEURO: ALERT, ORIENTED TO SELF, PLACE, SITUATION. DISORIENTED TO TIME THIS EVENING. SOME REPETATIVE SPEECH THIS EVENING WELL. GENERALIZED WEAKNESSS HAS WORSENED THROUGH OUT THE DAY. ABLE TO MAKE HER NEEDS KNOWN WHEN NURSE AT BEDSIDE. CARDIAC: SR, HR 70S. REMAINS HYPOTENSIVE, SBP 80-90S. MAP REMAINS >65. PULM: LUNGS CLEAR/DIM W/ SOME EXP WHEEZE THIS AM THAT HAS NOW RESOVLED. GI, DIARRHEA X2 ORANGE/BROWN, CALLED AND NOTIFIED DR MENENDEZ THIS AM. NO ORDERS RECIEVED AT THAT TIME : ABBOTT IN PLACE, DRAINING TO GRAVITY. OLIGURIC, APPROX 150ML OUT TODAY, DARK YELLOW IN COLOR. SOME SCATTERED ECCYMOSIS BUE, OTHERWISE SKIN INTACT. DR PERALTA REMOVED PT PORT THIS AM. MANY FAMILY MEMEBERS AT BEDSIDE TODAY, UPDATED FAMILY MEMBERS OK PER PT REGARDING RECENT CT RESULTS. FAMILY AND PT MET WITH PALLATIVE CARE AND ELECTED FOR COMFORT CARE. DISCHARGE PLAN: D/C HOME WITH HOSPICE TOMORROW APPROX 1500.
[2025-08-02] VITALS: BP 93/56
--- NOTE | 2025-08-02 06:57 | NUR ---
END OF NURSING ASSISTANT SUMMARY: PATIENT APPEARS COMFORTABLE THROUGHOUT NIGHT, RESTING WITH MINIMAL INTERRUPTIONS. COMFORT ASSESSED FREQUENTLY. PATIENT REFUSED TURNS THIS SHIFT BUT AGREED TO TURN TO LEFT SIDE WITH PILLOW SUPPORT AT THE END OF SHIFT. REPORTS NO PAIN THROUGHOUT SHIFT. REMAINS HYPOTENSIVE. REPEATED WORDS FREQUENTY WITH MINIMAL INTERACTIONS WITH STAFF WHEN ASKED QUESTIONS AND COMMANDS. SAFETY MAINTAINED. PATIENT FAMILY AT BEDSIDE.
[2025-08-02] MEDS ORDERED: NS 100 ML IV ONE (08:32)
--- NOTE | 2025-08-02 10:30 | NUR ---
"Spiritual Care | Comfort Care Visit. Pt. is on comfort care, and while her eyes track the pt. does not respond verbally. Magali is at bedside and welcomes my visit. Facilitated an update of the plan for the Pt. to go home on [facility]. Prayed for the Pt. and family. Daughter requested that this dukey rider contact her nondenominational about the transfer. Daughter verbalized gratitude for the spiritual care visit. Phone call was made to Mart Drew."
[2025-08-02] MEDS ORDERED: MORP20L PO (12:55)
[2025-08-02] MEDS ORDERED: LORA2L PO (12:56)
[2025-08-02] MEDS ORDERED: ATROPINE SULFATE2 M1 SL (12:58)
[2025-08-02] MEDS ORDERED: ACET325 PO (12:58)
--- NOTE | 2025-08-02 14:37 | NUR ---
DISCHARGE SUMMARY PT DISCHARGED TO HOME ON HOSPICE. TRANSPORT AT 1411 VIA EMS NON EMERGENCY WITH [facility]. EDUCATION PROVIDED TO ANN LOVELL REGARDING END OF LIFE CARE. PLAN FOR [facility] TO ADMIT AT HOME AT 1500. HARD SCRIPTS FOR MEDICATIONS SEND WITH DAUGHTER INSTRUCTED TO TAKE TO [facility] TO FILL. PT DROWSY TODAY, RASS -1. MOSTLY NON VERBAL TODAY. SOME MINIMAL EXTERMITIY MOVMENT. FLAT AFFECT, WITHDRAWN. PT DID SAY HELLO TO ME X 2 TODAY. LUNGS CLEAR, DIM, RA. CARDIAC: B/P SOFT, HR 80-100S. GI: NORMOACTIVE BOWEL TONES. SMALL BM : ABBOTT IN PLACE, OLIGURIC. ABBOTT LEFT IN PLACE FOR DC TO HOSPICE SKIN: INTACT, SOME ECCYMOSIS BUE FROM PRIOR IV SITES. IVS REMOVED PRIOR TO DAY. REVIEWED DISCHARGE INSTRUCTIONS WITH ANN LOVELL.
--- NOTE | 2025-08-02 17:18 | NUR ---
DISCUSSED WITH GRAVEDIGGER. DISCUSSED WITH FRANSICO FROM [facility]. PATIENT IS PENDING DISCHARGE TO HOSPICE THIS AFTERNOON
== END 2025-08-02 14:11 | disposition hospice, home (50) | DRG 871 ==
LOC: ER 10:17 → ICUE 13:21
PROVIDERS: Emergency Medicine; Internal Medicine; Registered Nurse; ADMIT Family Medicine
PROC: 5A09357 Assistance with Respiratory Ventilation, Less than 24 Consecutive Hours, Continuous Positive Airway Pressure (ICD-10-PCS; 2025-07-28)
PROC: 3E03329 Introduction of Other Anti-infective into Peripheral Vein, Percutaneous Approach (ICD-10-PCS; principal; 2025-07-30)
PROC: 02HV33Z Insertion of Infusion Device into Superior Vena Cava, Percutaneous Approach (ICD-10-PCS; 2025-08-01)
DX: A41.9 Sepsis, unspecified organism (principal); J18.9 Pneumonia, unspecified organism; J69.0 Pneumonitis due to inhalation of food and vomit; J96.00 Acute respiratory failure, unspecified whether with hypoxia or hypercapnia; E87.29 Other acidosis; N17.9 Acute kidney failure, unspecified; I47.19 Other supraventricular tachycardia; I48.92 Unspecified atrial flutter; Z66 Do not resuscitate; R65.20 Severe sepsis without septic shock; I48.91 Unspecified atrial fibrillation; K21.9 Gastro-esophageal reflux disease without esophagitis; N18.30 Chronic kidney disease, stage 3 unspecified; F32.A Depression, unspecified; G62.9 Polyneuropathy, unspecified; M35.3 Polymyalgia rheumatica; Z85.51 Personal history of malignant neoplasm of bladder; Z51.5 Encounter for palliative care; B95.61 Methicillin susceptible Staphylococcus aureus infection as the cause of diseases classified elsewhere; Z88.8 Allergy status to other drugs, medicaments and biological substances; Z98.890 Other specified postprocedural states; Z79.01 Long term (current) use of anticoagulants; Z79.899 Other long term (current) drug therapy
CPT/HCPCS: 36415; 51702; 71045; 74176; 80048; 80053; 80202; 81001; 82570; 82803; 82947; 83605; 83735; 83880; 83935; 84100; 84300; 84484; 84540; 85025; 86140; 87040; 87077; 87086; 87106; 87147; 87186; 87493; 87637; 93005; 93010; 93308; 93321; 94640; 94660; 94664; 94760; 94762; 96365-59; 96367-59; 96375-59; 97162; 97165; 97530; 97535; 99285-25; A9270; C1751; J0692; J1938; J1956; J2003; J3373; J7030; J7040; J7050; J7512